=== PATIENT | female | born 1955 | race Caucasian/White ===

== ENCOUNTER 2016-10-13 06:49 | Day surgery (SDC) | payer BC ==
[2016-10-10 14:05] VITALS: BMI 28.8
[~2016-10-13 06:49] MED LIST: LACTATED RINGERS 1,000 ML IV SCH; LIDOCAINE 1% 20 ML VIAL (10MG/ML) FOR IV START INTRADERMA PRN
[2016-10-13] MEDS ORDERED: LACTATED RINGERS 1,000 ML IV ONE (06:50)
[2016-10-13 07:14] VITALS: TEMP 96.8
[2016-10-13] MEDS ORDERED: LIDOCAINE 1% INJ 10MG/ML (20 ML MDV) ONE (07:29)
[2016-10-13] MEDS ORDERED: PROPOFOL 10 MG/ML 20 ML VIAL IV ONE (07:29)
--- NOTE | 2016-10-13 07:46 | P.GSHP ---
History of Present Illness H&P Date: 10/13/16 Chief Complaint: Screening colonoscopy This is a 61-year-old female who presents today for screening colonoscopy. Patient's last colonoscopy was 10 years ago. She denies a any significant GI complaints. - Constitutional Constitutional: Reports as per HPI Past Medical History Past Medical History: Hypertension, Thyroid Disorder Additional Past Medical History / Comment(s): states "heart rate speeds up at times",IBS History of Any Multi-Drug Resistant Organisms: None Reported Past Surgical History: Cholecystectomy, Hysterectomy Past Anesthesia/Blood Transfusion Reactions: Postoperative Nausea & Vomiting ( PONV) Additional Past Anesthesia/Blood Transfusion Reaction / Comment(s): has hard time waking up with anesthesia. No hx blood transfusion Smoking Status: Former smoker Past Alcohol Use History: Occasional Additional Past Alcohol Use History / Comment(s): quit smoking approx 2006, smoked for 3 yrs approx <1ppd Past Drug Use History: None Reported - Past Family History Mother Family Medical History: Cancer Additional Family Medical History / Comment(s): lung CA Father Additional Family Medical History / Comment(s): alcoholism Medications and Allergies Home Medications Medication Instructions Recorded Confirmed Type Acetaminophen Tab [Tylenol Tab] 325 mg PO Q6H PRN 10/10/16 10/13/16 History Ergocalciferol [Vitamin D2] 50,000 unit PO Q7D 10/10/16 10/13/16 History Hyoscyamine Sulfate [Levsin] 0.125 mg PO QID PRN 10/10/16 10/13/16 History Levothyroxine Sodium [Synthroid] 50 mcg PO QAM 10/10/16 10/13/16 History Ramipril [Altace] 1.25 mg PO BID 10/10/16 10/13/16 History Venlafaxine HCl [Effexor XR] 150 mg PO HS 10/10/16 10/13/16 History Allergies Allergy/AdvReac Type Severity Reaction Status Date / Time latex Allergy Rash/Hives Verified 10/13/16 07:09 Sulfa (Sulfonamide AdvReac Nausea & Verified 10/13/16 07:09 Antibiotics) Vomiting Surgical - Exam Vital Signs Temp Pulse Resp BP Pulse Ox 96.8 F L 81 16 139/84 99 10/13/16 07:13 10/13/16 07:13 10/13/16 07:13 10/13/16 07:13 10/13/16 07:13 - General well developed, no distress - Eyes PERRL - ENT normal pinna - Neck no masses - Respiratory normal expansion - Abdomen Abdomen: soft, non tender Assessment and Plan Plan: We'll perform screening colonoscopy.
--- NOTE | 2016-10-13 08:04 | P.OP ---
Date of Procedure: 10/13/16 Preoperative Diagnosis: Screening colonoscopy Postoperative Diagnosis: Normal colonoscopy Procedure(s) Performed: Colonoscopy Anesthesia: MAC Surgeon: Tomer Dove Pathology: none sent Condition: stable Disposition: PACU Description of Procedure: PROCEDURE: The patient was placed on the endoscopy table in the lateral position. Digital rectal examination was performed which revealed no abnormalities. Flexible colonoscope was then placed in the patient's anus and passed throughout the entire colon. The ileocecal valve was visualized. The cecum, ascending, transverse, descending and sigmoid colon were normal. The rectum was normal as well. There were no masses, polyps or diverticula noted in the entire colon. SUMMARY OF FINDINGS: Normal colonoscopy.
[2016-10-13 08:11] VITALS: PULSE 70
[2016-10-13 08:21] VITALS: BP 121/72; RESP 18
== END 2016-10-13 08:52 | disposition home or self-care (01) ==
LOC: ORWHC2ENDO 06:49
PROVIDERS: ATTEND Surgery
DX: Z12.11 Encounter for screening for malignant neoplasm of colon (principal); I10 Essential (primary) hypertension; E07.9 Disorder of thyroid, unspecified; Z87.891 Personal history of nicotine dependence; F32.9 Major depressive disorder, single episode, unspecified; Z79.899 Other long term (current) drug therapy; Z88.2 Allergy status to sulfonamides
CPT/HCPCS: J2001; J2704; G0121

== ENCOUNTER 2016-10-27 09:38 | Observation (INO) | payer BC ==
[2016-10-27] MEDS ORDERED: SODIUM CHLORIDE 0.9% 1,000 ML IV STA (10:13)
--- NOTE | 2016-10-27 10:16 | ED ---
General Adult HPI <Fredy Mae - Last Filed: 10/27/16 11:59> - General Source: patient, RN notes reviewed Mode of arrival: ambulatory Limitations: no limitations <Shaka Cedeño - Last Filed: 10/27/16 12:25> - General Chief complaint: Abdominal Pain Stated complaint: ABDOMINAL PAIN Time Seen by Provider: 10/27/16 09:54 - History of Present Illness Initial comments: Patient is a 61-year-old female who presents emergency room today with a chief complaint of increased right lower quadrant pain that began this morning when she woke. Patient does admit that a dull pain with sharp pain at times. Currently rates it a 5/10. States she went to urgent care who evaluated her and sent here to the emergency room for rule out appendicitis. Patient denies any other complaints or associated symptoms. Patient denies any recent fever, chills, shortness of breath, chest pain, back pain, nausea or vomiting, numbness or tingling, dysuria or hematuria, constipation or diarrhea, headaches or visual changes, or any other complaints. (Shaka Cedeño) - Related Data Home Medications Medication Instructions Recorded Confirmed Acetaminophen Tab [Tylenol Tab] 325 mg PO Q6H PRN 10/10/16 10/27/16 Ergocalciferol [Vitamin D2] 50,000 unit PO MO 10/10/16 10/27/16 Hyoscyamine Sulfate [Levsin] 0.125 mg PO QID PRN 10/10/16 10/27/16 Ramipril [Altace] 1.25 mg PO BID 10/10/16 10/27/16 Venlafaxine HCl [Effexor XR] 150 mg PO HS 10/10/16 10/27/16 Levothyroxine Sodium [Synthroid] 50 mcg PO DAILY 10/27/16 10/27/16 Allergies Allergy/AdvReac Type Severity Reaction Status Date / Time latex Allergy Rash/Hives Verified 10/27/16 09:44 Sulfa (Sulfonamide AdvReac Nausea & Verified 10/27/16 09:44 Antibiotics) Vomiting Review of Systems ROS Other: All systems not noted in ROS Statement are negative. <Fredy Mae - Last Filed: 10/27/16 11:59> ROS Other: All systems not noted in ROS Statement are negative. <Shaka Cedeño - Last Filed: 10/27/16 12:25> ROS Statement: Those systems with pertinent positive or pertinent negative responses have been documented in the HPI. Past Medical History Past Medical History: Hypertension, Thyroid Disorder Additional Past Medical History / Comment(s): states "heart rate speeds up at times",IBS History of Any Multi-Drug Resistant Organisms: None Reported Past Surgical History: Cholecystectomy, Hysterectomy Past Anesthesia/Blood Transfusion Reactions: Postoperative Nausea & Vomiting ( PONV) Additional Past Anesthesia/Blood Transfusion Reaction / Comment(s): has hard time waking up with anesthesia. No hx blood transfusion Smoking Status: Former smoker Past Alcohol Use History: Occasional Additional Past Alcohol Use History / Comment(s): quit smoking approx 2006, smoked for 3 yrs approx <1ppd Past Drug Use History: None Reported - Past Family History Mother Family Medical History: Cancer Additional Family Medical History / Comment(s): lung CA Father Additional Family Medical History / Comment(s): alcoholism <Shaka Cedeño - Last Filed: 10/27/16 12:25> General Exam <Fredy Mae - Last Filed: 10/27/16 11:59> Limitations: no limitations <Shaka Cedeño - Last Filed: 10/27/16 12:25> - General Exam Comments Initial Comments: General: The patient is awake and alert, in no distress, and does not appear acutely ill. Eye: Pupils are equal, round and reactive to light, extra-ocular movements are intact. No nystagmus. There is normal conjunctiva bilaterally. No signs of icterus. Ears, nose, mouth and throat: There are moist mucous membranes and no oral lesions. Neck: The neck is supple, there is no tenderness or JVD. Cardiovascular: There is a regular rate and rhythm. No murmur, rub or gallop is appreciated. Respiratory: Lungs are clear to auscultation, respirations are non-labored, breath sounds are equal. No wheezes, stridor, rales, or rhonchi. Gastrointestinal: Normal. 7. Normal bowel sounds. Soft on palpation. Patient does have mild tenderness in the right lower quadrant. No rebound tenderness. No guarding. No CVA tenderness. Musculoskeletal: Normal ROM, no tenderness. Strength 5/5. Sensation intact. Pulses equal bilaterally 2+. Neurological: A&O x 3. CN II-XII intact, There are no obvious motor or sensory deficits. Coordination appears grossly intact. Speech is normal. Skin: Skin is warm and dry and no rashes or lesions are noted. Psychiatric: Cooperative, appropriate mood & affect, normal judgment. (Shaka Cedeño) Medical Decision Making - Lab Data Result diagrams: 10/27/16 09:55 10/27/16 09:55 <Fredy Mae - Last Filed: 10/27/16 11:59> - Lab Data Result diagrams: 10/27/16 09:55 10/27/16 09:55 <Shaka Cedeño - Last Filed: 10/27/16 12:25> - Medical Decision Making The patient was seen and examined. All diagnostics were reviewed. It appears that she likely does have an early appendicitis. The case will be discussed with surgery in the near future. The case also was discussed with the PA and I agree with the findings as documented. (Fredy Mae) - Lab Data Lab Results 10/27/16 10/27/16 10/27/16 Range/Units 09:55 09:55 09:55 WBC 8.1 (3.8-10.6) k/uL RBC 4.75 (3.80-5.40) m/uL Hgb 14.4 (11.4-16.0) gm/dL Hct 42.8 (34.0-46.0) % MCV 90.1 (80.0-100.0) fL MCH 30.3 (25.0-35.0) pg MCHC 33.7 (31.0-37.0) g/dL RDW 12.6 (11.5-15.5) % Plt Count 234 (150-450) k/uL Neutrophils % 71 % Lymphocytes % 21 % Monocytes % 4 % Eosinophils % 1 % Basophils % 1 % Neutrophils # 5.8 (1.3-7.7) k/uL Lymphocytes # 1.7 (1.0-4.8) k/uL Monocytes # 0.4 (0-1.0) k/uL Eosinophils # 0.1 (0-0.7) k/uL Basophils # 0.1 (0-0.2) k/uL Sodium 142 (137-145) mmol/L Potassium 4.1 (3.5-5.1) mmol/L Chloride 104 (98-107) mmol/L Carbon Dioxide 27 (22-30) mmol/L Anion Gap 11 mmol/L BUN 16 (7-17) mg/dL Creatinine 0.70 (0.52-1.04) mg/dL Est GFR (MDRD) Af Amer >60 (>60 ml/min/1.73 sqM) Est GFR (MDRD) Non-Af >60 (>60 ml/min/1.73 sqM) Glucose 96 (74-99) mg/dL Plasma Lactic Acid Dustin (0.7-2.0) mmol/L Calcium 9.4 (8.4-10.2) mg/dL Total Bilirubin 0.4 (0.2-1.3) mg/dL AST 20 (14-36) U/L ALT 30 (9-52) U/L Alkaline Phosphatase 102 (38-126) U/L Total Protein 7.2 (6.3-8.2) g/dL Albumin 4.5 (3.5-5.0) g/dL Amylase 36 (30-110) U/L Lipase 60 (23-300) U/L Urine Color Yellow Urine Appearance Cloudy H (Clear) Urine pH 5.5 (5.0-8.0) Ur Specific [place] 1.016 (1.001-1.035) Urine Protein Negative (Negative) Urine Glucose (UA) Negative (Negative) Urine Ketones Negative (Negative) Urine Blood Negative (Negative) Urine Nitrite Negative (Negative) Urine Bilirubin Negative (Negative) Urine Urobilinogen <2.0 (<2.0) mg/dL Ur Leukocyte Esterase Negative (Negative) Urine RBC 2 (0-5) /hpf Urine WBC 1 (0-5) /hpf Ur Squamous Epith Cells 12 H (0-4) /hpf Urine Bacteria Rare H (None) /hpf Urine Mucus Occasional H (None) /hpf 10/27/16 Range/Units 10:30 WBC (3.8-10.6) k/uL RBC (3.80-5.40) m/uL Hgb (11.4-16.0) gm/dL Hct (34.0-46.0) % MCV (80.0-100.0) fL MCH (25.0-35.0) pg MCHC (31.0-37.0) g/dL RDW (11.5-15.5) % Plt Count (150-450) k/uL Neutrophils % % Lymphocytes % % Monocytes % % Eosinophils % % Basophils % % Neutrophils # (1.3-7.7) k/uL Lymphocytes # (1.0-4.8) k/uL Monocytes # (0-1.0) k/uL Eosinophils # (0-0.7) k/uL Basophils # (0-0.2) k/uL Sodium (137-145) mmol/L Potassium (3.5-5.1) mmol/L Chloride (98-107) mmol/L Carbon Dioxide (22-30) mmol/L Anion Gap mmol/L BUN (7-17) mg/dL Creatinine (0.52-1.04) mg/dL Est GFR (MDRD) Af Amer (>60 ml/min/1.73 sqM) Est GFR (MDRD) Non-Af (>60 ml/min/1.73 sqM) Glucose (74-99) mg/dL Plasma Lactic Acid Dustin 0.7 (0.7-2.0) mmol/L Calcium (8.4-10.2) mg/dL Total Bilirubin (0.2-1.3) mg/dL AST (14-36) U/L ALT (9-52) U/L Alkaline Phosphatase (38-126) U/L Total Protein (6.3-8.2) g/dL Albumin (3.5-5.0) g/dL Amylase (30-110) U/L Lipase (23-300) U/L Urine Color Urine Appearance (Clear) Urine pH (5.0-8.0) Ur Specific [place] (1.001-1.035) Urine Protein (Negative) Urine Glucose (UA) (Negative) Urine Ketones (Negative) Urine Blood (Negative) Urine Nitrite (Negative) Urine Bilirubin (Negative) Urine Urobilinogen (<2.0) mg/dL Ur Leukocyte Esterase (Negative) Urine RBC (0-5) /hpf Urine WBC (0-5) /hpf Ur Squamous Epith Cells (0-4) /hpf Urine Bacteria (None) /hpf Urine Mucus (None) /hpf Disposition <Fredy Mae - Last Filed: 10/27/16 11:59> Time of Disposition: 12:05 <Shaka Cedeño - Last Filed: 10/27/16 12:25> Clinical Impression: Acute appendicitis Disposition: ADMITTED IP TO THIS HOSP Condition: Good
[2016-10-27 10:37] LABS: Appearance,Urine Cloudy (Clear); Bacteria,Urine Rare /hpf; Bilirubin,Urine Negative (Negative); Glucose,Urine (UA) Negative (Negative); Ketones,Urine Negative (Negative); Leukocyte Esterase,Urine Negative (Negative); Mucus,Urine Occasional /hpf; Nitrite,Urine Negative (Negative); PH, Urine 5.5 (5.0-8.0); Particle Count 6058; Protein,Urine Negative (Negative); RBC,Urine 2 /hpf (0-5); Specific Gravity,Urine 1.016 (1.001-1.035); Squamous Epithelial Cell,Urine 12 /hpf (0-4); UA Billing (MACRO vs. MICRO) MICRO; Urobilinogen,Urine <2.0 mg/dL (<2.0); WBC,Urine 1 /hpf (0-5)
[2016-10-27 10:40] LABS: Basophils # (A) 0.1 k/uL (0-0.2); Basophils % (A) 1 %; CH 29.2; CHCM 32.5; Eosinophils # (A) 0.1 k/uL (0-0.7); Eosinophils % (A) 1 %; HCT 42.8 % (34.0-46.0); HDW 2.23; HGB 14.4 gm/dL (11.4-16.0); Luc # (Auto) 0.11; Luc % (Auto) 1; Lymphocytes # (A) 1.7 k/uL (1.0-4.8); Lymphocytes % (A) 21 %; MCH 30.3 pg (25.0-35.0); MCHC 33.7 g/dL (31.0-37.0); MCV 90.1 fL (80.0-100.0); Monocytes # (A) 0.4 k/uL (0-1.0); Monocytes % (A) 4 %; Neutrophils # (A) 5.8 k/uL (1.3-7.7); Neutrophils % (A) 71 %; RBC 4.75 m/uL (3.80-5.40); RDW 12.6 % (11.5-15.5); WBC 8.1 k/uL (3.8-10.6); WBC (Perox) 8.14
[2016-10-27 10:45] LABS: ALT 30 U/L (9-52); AST 20 U/L (14-36); Alkaline Phosphatase 102 U/L (38-126); Amylase 36 U/L (30-110); Anion Gap 11 mmol/L; Blood Urea Nitrogen 16 mg/dL (7-17); Calcium 9.4 mg/dL (8.4-10.2); Carbon Dioxide 27 mmol/L (22-30); Chloride 104 mmol/L (98-107); Glucose 96 mg/dL (74-99); Non-African American GFR(MDRD) >60 (>60 ml/min/1.73 sqM); Potassium 4.1 mmol/L (3.5-5.1); Sodium 142 mmol/L (137-145); Total Bilirubin 0.4 mg/dL (0.2-1.3); Total Protein 7.2 g/dL (6.3-8.2)
[2016-10-27] MEDS ORDERED: RX INFO: IV CONTRAST WAS GIVEN 1 EACH MISC MISCELLANE PRN (10:56)
--- NOTE | 2016-10-27 11:31 | CT ---
EXAMINATION TYPE: CT abdomen pelvis w con DATE OF EXAM: 10/27/2016 11:20 AM REFERENCE: NONE HISTORY: Pain HISTORY: Right Lower Quadrant pain today REFERENCE: NONE CT DLP: 1096.5 mGy Automated exposure control for dose reduction was used. TECHNIQUE: Helical acquisition through the abdomen and pelvis was obtained following the oral ingesti on of without Oral Contrast and following intravenous administration of 100 mL of Omnipaque 300. The data was reformatted in axial, coronal and sagittal projections. FINDINGS: There is dependent atelectasis within the lungs. There is no pleural or pericardial fluid. The heart is not enlarged. There is a small hiatal hernia. Within the abdomen, the gallbladder is been removed. Liver and spleen are normal. Both adrenal glands are normal. There is a 4.6 mm nonobstructing calculus in the posterior lower pole calyx of the left kidney. Kidne ys are otherwise normal. The pancreas is unremarkable. There is no significant retroperitoneal, iliac or inguinal adenopathy. Uterus and ovaries are not visualized. There are tubal ligation clips within the pelvis. The bladder is unremarkable. There are scattered diverticula throughout the left side of the colon. There is no radiographic evide nce of diverticulitis. There is a retrocecal appendix measuring 9 mm with some inflammatory change adjacent to it. Small bowel loops appear normal. There is a small umbilical hernia containing fat only with a 10.2 mm mouth. There is no free fluid and no free air identified. There is minimal hypertrophic spondylosis within the lower dorsal spine. There is facet arthropathy i n the lower lumbar spine. No bony destructive lesion is seen. IMPRESSION: 1. SIGNS OF EARLY APPENDICITIS. 2. NONOBSTRUCTING LEFT-SIDED NEPHROLITHIASIS. 3. SMALL HIATAL HERNIA. 4. MINIMAL, UNCOMPLICATED DIVERTICULOSIS OF THE LEFT SIDE OF THE COLON. 5. SMALL UMBILICAL HERNIA CONTAINING FAT ONLY. 6. DEGENERATIVE CHANGES WITHIN THE SPINE.
[2016-10-27] MEDS ORDERED: AMPICILLIN-SULBACTAM 3 GM in SODIUM CHLORIDE 0.9% 100 ML IVPB STA (11:58)
[2016-10-27] MEDS ORDERED: NALOXONE 0.4 MG/ML 1 ML VIAL IV PRN (12:25)
[2016-10-27] MEDS ORDERED: SODIUM CHLORIDE 0.9% 1,000 ML IV ONE (12:25)
[2016-10-27] MEDS ORDERED: ONDANSETRON 4 MG/2 ML VIAL IVP PRN ×2 (12:25→13:53)
[2016-10-27] MEDS ORDERED: IV FLUID CONTINUATION 1,000 ML IV ONE (12:59)
[2016-10-27] MEDS ORDERED: DEXAMETHASONE SOD PHOS (MDV) 100 MG/10 ML VIAL IV ONE (13:04)
[2016-10-27] MEDS ORDERED: SCOPOLAMINE 1.5MG/72HR PATCH TRANSDERM ONE (13:08)
[2016-10-27] MEDS ORDERED: HEPARIN SODIUM,PORCINE 5,000 UNIT/ML 1 ML VIAL SQ ONE (13:12)
--- NOTE | 2016-10-27 13:14 | P.GSHP ---
History of Present Illness H&P Date: 10/27/16 Chief Complaint: Appendicitis This a 7-year-old female who woke up with complaints of right lower quadrant pain today patient was evaluated in the emergency room found have evidence of acute appendicitis on CAT scan. Past Medical History Past Medical History: Hypertension, Thyroid Disorder Additional Past Medical History / Comment(s): states "heart rate speeds up at times",IBS, hypothyroid. History of Any Multi-Drug Resistant Organisms: None Reported Past Surgical History: Cholecystectomy, Hysterectomy Additional Past Surgical History / Comment(s): 10/13/16 colonoscopy-normal, R wrist cystectomy. Past Anesthesia/Blood Transfusion Reactions: Postoperative Nausea & Vomiting ( PONV) Additional Past Anesthesia/Blood Transfusion Reaction / Comment(s): has hard time waking up with anesthesia. No hx blood transfusion Past Psychological History: Depression Additional Psychological History / Comment(s): Pt resides with her spouse. She is independent. Smoking Status: Former smoker Past Alcohol Use History: Occasional Additional Past Alcohol Use History / Comment(s): quit smoking approx 2006, smoked for 3 yrs approx <1ppd Past Drug Use History: None Reported - Past Family History Mother Family Medical History: Cancer Additional Family Medical History / Comment(s): lung CA. Mother was a smoker. Father Additional Family Medical History / Comment(s): alcoholism Medications and Allergies Home Medications Medication Instructions Recorded Confirmed Type Acetaminophen Tab [Tylenol Tab] 325 mg PO Q6H PRN 10/10/16 10/27/16 History Ergocalciferol [Vitamin D2] 50,000 unit PO MO 10/10/16 10/27/16 History Hyoscyamine Sulfate [Levsin] 0.125 mg PO QID PRN 10/10/16 10/27/16 History Ramipril [Altace] 1.25 mg PO BID 10/10/16 10/27/16 History Venlafaxine HCl [Effexor XR] 150 mg PO HS 10/10/16 10/27/16 History Levothyroxine Sodium [Synthroid] 50 mcg PO DAILY 10/27/16 10/27/16 History Allergies Allergy/AdvReac Type Severity Reaction Status Date / Time latex Allergy Rash/Hives Verified 10/27/16 09:44 Sulfa (Sulfonamide AdvReac Nausea & Verified 10/27/16 09:44 Antibiotics) Vomiting Surgical - Exam Vital Signs Temp Pulse Resp BP Pulse Ox 97.8 F 85 20 125/78 98 10/27/16 09:42 10/27/16 09:42 10/27/16 09:42 10/27/16 09:42 10/27/16 09:42 - General well developed, no distress - Eyes PERRL - ENT normal pinna - Neck no masses - Respiratory normal expansion - Cardiovascular Rhythm: regular - Abdomen Abdomen soft. There is mild right lower quadrant pain. There is no rebound or guarding. Results - Labs 10/27/16 09:55 10/27/16 09:55 Assessment and Plan Plan: Acute appendicitis. She'll undergo laparoscopic appendectomy today.
[2016-10-27] MEDS ORDERED: KETOROLAC 30 MG/ML 1 ML VIAL ONE (13:20)
[2016-10-27] MEDS ORDERED: PROPOFOL 10 MG/ML 20 ML VIAL IV ONE (13:20)
[2016-10-27] MEDS ORDERED: ACETAMINOPHEN IV (For NPO) 1,000 MG/100 ML VIAL ONE (13:20)
[2016-10-27] MEDS ORDERED: LIDOCAINE 1% INJ 10MG/ML (20 ML MDV) ONE (13:20)
[2016-10-27] MEDS ORDERED: GLYCOPYRROLATE 0.2 MG/ML 2 ML VIAL ONE (13:20)
[2016-10-27] MEDS ORDERED: NEOSTIGMINE 1 MG/ML 10 ML VIAL ONE (13:20)
[2016-10-27] MEDS ORDERED: fentaNYL (PF) 50 MCG/ML 2 ML AMP ONE (13:20)
[2016-10-27] MEDS ORDERED: SUCCINYLCHOLINE CHLORIDE 100 MG/5 ML SYR IV ONE (13:20)
[2016-10-27] MEDS ORDERED: MIDAZOLAM 2 MG/2 ML VIAL ONE (13:20)
[2016-10-27] MEDS ORDERED: VECURONIUM 10 MG VIAL IV ONE (13:20)
[2016-10-27] MEDS ORDERED: BUPIVACAIN-EPI 0.25%-1:200,000 30 ML VIAL SQ ONE ×2 (13:34)
[2016-10-27] MEDS ORDERED: METOCLOPRAMIDE 5 MG/ML 2 ML VIAL IVP PRN (13:53)
--- NOTE | 2016-10-27 13:53 | P.OP ---
Date of Procedure: 10/27/16 Preoperative Diagnosis: Acute appendicitis Postoperative Diagnosis: Acute appendicitis Procedure(s) Performed: Laparoscopic appendectomy Anesthesia: PABLO HERRERA Surgeon: Tomer Dove Estimated Blood Loss (ml): 5 Pathology: other (Appendix) Condition: stable Disposition: PACU Description of Procedure: The patient's placed on the operating table in the supine position. The patient received general anesthesia. The abdomen was prepped and draped in the usual sterile fashion. The skin was anesthetized 1% local Xylocaine at the trocar sites. Using an 11 blade the skin was incised at the umbilicus. The umbilicus was grasped with a Leticia clamp and then a Veress needle was placed into the peritoneal cavity. Position of the Veress needle was confirmed with positive drop test. After adequate insufflation a 5 mm trocar was placed into the peritoneal cavity. The abdomen was further insufflated. And then the laparoscope was placed in the peritoneal cavity. Next a 5 mm trocar was placed in the midline suprapubic position. And then a 10 mm trocar was placed in the midline epigastric position. The patient was rotated with the right side up and in Trendelenburg. The appendix was visualized. The appendix appeared to be inflamed. The appendix was grasped and then using the Harmonic scissors the mesoappendix was divided. A PDS Endoloop was then placed around the base of the appendix. And then the appendix was divided using Harmonic scissors. The appendix was placed into an Endo Catch and brought out through the 10 mm trocar site. The abdomen was irrigated. There is no bleeding seen. The trochars withdrawn. The skin was closed interrupted 3-0 Monocryl suture. Dermabond dressing was applied. Patient was sent to recovery room in stable condition.
[2016-10-27] MEDS: D5-0.45% NACL WITH KCL 20MEQ/L 1,000 ML IV SCH ×2 (15:07→22:44)
[2016-10-27] MEDS: KETOROLAC 30 MG/ML 1 ML VIAL IVP PRN ×2 (15:12→21:09)
[2016-10-27 15:44] LABS: Basophils % (A) 0 %; CH 29.2; CHCM 31.5; Eosinophils # (A) 0.1 k/uL (0-0.7); Eosinophils % (A) 1 %; HCT 41.3 % (34.0-46.0); HDW 2.13; HGB 13.2 gm/dL (11.4-16.0); Luc # (Auto) 0.05; Luc % (Auto) 1; Lymphocytes % (A) 10 %; MCH 29.9 pg (25.0-35.0); MCHC 32.1 g/dL (31.0-37.0); MCV 93.2 fL (80.0-100.0); Mean Platelet Volume 7.4; Monocytes # (A) 0.2 k/uL (0-1.0); Monocytes % (A) 2 %; Neutrophils # (A) 8.8 k/uL (1.3-7.7); Neutrophils % (A) 87 %; RBC 4.43 m/uL (3.80-5.40); RDW 12.8 % (11.5-15.5); WBC 10.1 k/uL (3.8-10.6); WBC (Perox) 11.04
[2016-10-27 15:52] LABS: Anion Gap 15 mmol/L; Blood Urea Nitrogen 13 mg/dL (7-17); Calcium 8.7 mg/dL (8.4-10.2); Carbon Dioxide 20 mmol/L (22-30); Chloride 108 mmol/L (98-107); Glucose 118 mg/dL (74-99); Non-African American GFR(MDRD) >60 (>60 ml/min/1.73 sqM); Potassium 4.2 mmol/L (3.5-5.1); Sodium 143 mmol/L (137-145)
[2016-10-27] MEDS: HYDROmorphone 1 MG/ML 1 ML SYRINGE IV PRN (16:20)
[2016-10-27] MEDS: HEPARIN SODIUM,PORCINE 5,000 UNIT/ML 1 ML VIAL SQ SCH (16:22)
[2016-10-27 16:39] VITALS: BMI 29.4
[2016-10-28] MEDS: HEPARIN SODIUM,PORCINE 5,000 UNIT/ML 1 ML VIAL SQ SCH ×2 (00:07→08:05)
[2016-10-28] MEDS: HYDROmorphone 1 MG/ML 1 ML SYRINGE IV PRN (00:15)
[2016-10-28] MEDS: D5-0.45% NACL WITH KCL 20MEQ/L 1,000 ML IV SCH (05:07)
[2016-10-28] MEDS: KETOROLAC 30 MG/ML 1 ML VIAL IVP PRN ×2 (05:07→12:02)
[2016-10-28] MEDS ORDERED: LEVOTHYROXINE 50 MCG TAB PO SCH (06:30)
[2016-10-28 07:49] LABS: Basophils % (A) 0 %; CH 29.3; CHCM 31.8; Eosinophils % (A) 0 %; HCT 38.1 % (34.0-46.0); HDW 2.27; HGB 12.7 gm/dL (11.4-16.0); Luc # (Auto) 0.06; Luc % (Auto) 1; Lymphocytes # (A) 0.8 k/uL (1.0-4.8); Lymphocytes % (A) 6 %; MCH 30.7 pg (25.0-35.0); MCHC 33.3 g/dL (31.0-37.0); MCV 92.3 fL (80.0-100.0); Mean Platelet Volume 7.2; Monocytes # (A) 0.4 k/uL (0-1.0); Monocytes % (A) 3 %; Neutrophils # (A) 11.3 k/uL (1.3-7.7); Neutrophils % (A) 90 %; RBC 4.13 m/uL (3.80-5.40); RDW 12.7 % (11.5-15.5); WBC 12.6 k/uL (3.8-10.6); WBC (Perox) 13.06
[2016-10-28 07:54] LABS: ALT 27 U/L (9-52); AST 19 U/L (14-36); Alkaline Phosphatase 83 U/L (38-126); Anion Gap 10 mmol/L; Blood Urea Nitrogen 8 mg/dL (7-17); Calcium 8.9 mg/dL (8.4-10.2); Carbon Dioxide 22 mmol/L (22-30); Chloride 107 mmol/L (98-107); Glucose 163 mg/dL (74-99); Non-African American GFR(MDRD) >60 (>60 ml/min/1.73 sqM); Potassium 4.7 mmol/L (3.5-5.1); Sodium 139 mmol/L (137-145); Total Bilirubin 0.4 mg/dL (0.2-1.3); Total Protein 6.4 g/dL (6.3-8.2)
--- NOTE | 2016-10-28 08:58 | CONS ---
DATE OF CONSULTATION: I am covering for Dr. Cantrell. REASON FOR CONSULTATION: Advice regarding hypertension and multiple other medical problems requested by Dr. Dove. HISTORY OF PRESENT ILLNESS: This 61-year-old woman with a past medical history of hypertension, hypothyroidism, history of IBS, history of cholecystectomy, hysterectomy, history of depression, being followed by Dr. Cantrell in the outpatient setting was admitted with abdominal pain. The patient underwent laparoscopic appendectomy for acute appendicitis and the patient has been closely monitored. There is no history of fever, headache, loss of consciousness, seizures. PAST MEDICAL HISTORY: History of hypertension, hypothyroidism, history of IBS, history of cholecystectomy, hysterectomy, appendectomy. Medications prior to admission include: 1. Effexor-XR 150 mg q.h.s. 2. Altace 1.25 mg b.i.d. 3. Synthroid 50 mg daily. 4. Levsin 0.12 mg p.o. q.i.d. p.r.n. 5. Vitamin D2 50,000 Monday. 6. Tylenol 325 mg q.6 p.r.n. ALLERGIES: LATEX AND SULFA. FAMILY HISTORY: History of lung cancer. SOCIAL HISTORY: Previous history of smoking. REVIEW OF SYSTEMS: ENT: No diminished hearing or diminished vision. CARDIOVASCULAR: No angina. RESPIRATORY: As mentioned earlier. GI: As mentioned earlier. : No dysuria. NERVOUS SYSTEM: No numbness or weakness. ALLERGY/IMMUNOLOGY: No asthma or hayfever. MUSCULOSKELETAL: As mentioned earlier. HEMATOLOGY: No history of anemia. ENDOCRINE: As mentioned earlier. CONSTITUTIONAL: As mentioned earlier. DERMATOLOGY: Negative. RHEUMATOLOGY: Negative. PSYCHIATRY: As mentioned earlier. PHYSICAL EXAMINATION: Alert and oriented x3. Pulse 75, blood pressure 124/60, respiration 16, temperature 97 degrees, pulse ox 97% on room air. HEENT: Conjunctivae normal. NECK: No jugular venous distention. CARDIOVASCULAR: S1 and S2, muffled. RESPIRATORY: Breath sounds diminished at the bases. No rhonchi, no crackles. ABDOMEN: Soft, status post surgery. LEGS: No edema, no swelling. NERVOUS SYSTEM: No focal deficits. LABS: CBC within normal limits. Otherwise, CO2 is 20, glucose 118. UA noted. ASSESSMENT: 1. Acute appendicitis, status post laparoscopic appendectomy. 2. Increased random blood sugar. 3. Hypertension. 4. Hypothyroidism. 5. History of irritable bowel syndrome. 6. History of cholecystectomy. 7. History of hysterectomy. 8. History of depression, not otherwise specified. RECOMMENDATIONS AND DISCUSSION: In this 64-year-old woman who presented with multiple complex medical issues issue, will monitor the patient closely. Continue the current medications. Continue symptomatic treatment. We will initiate the home medications. DVT prophylaxis. Otherwise incentive spirometry. Will follow the patient closely with you and patient may be asked to follow up with Dr. Madi Cantrell closely after discharge. Thank you, Dr. Dove for letting us participate in the care of this patient. NANI
[2016-10-28] MEDS ORDERED: LISINOPRIL 5 MG TAB PO SCH (09:00)
[2016-10-28 09:28] VITALS: BP 112/58; PULSE 66; RESP 14; TEMP 97.5
--- NOTE | 2016-10-28 16:24 | P.DS ---
Providers Date of admission: 10/27/16 12:21 Expected date of discharge: 10/28/16 Attending physician: Tomer Dove Consults: 10/27/16 18:14 Consult Physician Routine Consulting Provider: Pj Armijo Consult Reason/Comments: Medical Management Do you want consulting provider notified?: Yes Primary care physician: Madi Cantrell Hospital Course: This a 7-year-old female who underwent laparoscopic appendectomy yesterday for acute appendicitis. Patient did well postop. She is discharged home on 47. Please see hospital chart for details. Procedures: Laparoscopic appendectomy Patient Condition at Discharge: Good Plan - Discharge Summary New Discharge Prescriptions: HYDROcodone/APAP 7.5-325MG [[place] 7.5] 1 each PO Q4H PRN #60 tab PRN Reason: Pain Discharge Medication List Acetaminophen Tab [Tylenol Tab] 325 mg PO Q6H PRN 10/10/16 [History] Ergocalciferol [Vitamin D2] 50,000 unit PO MO 10/10/16 [History] Hyoscyamine Sulfate [Levsin] 0.125 mg PO QID PRN 10/10/16 [History] Ramipril [Altace] 1.25 mg PO BID 10/10/16 [History] Venlafaxine HCl [Effexor XR] 150 mg PO HS 10/10/16 [History] Levothyroxine Sodium [Synthroid] 50 mcg PO DAILY 10/27/16 [History] HYDROcodone/APAP 7.5-325MG [[place] 7.5] 1 each PO Q4H PRN #60 tab 10/28/16 [Rx] Follow up Appointment(s)/Referral(s): Madi Cantrell DO [Primary Care Provider] - 1-2 days (office closed) Tomer Dove MD [STAFF PHYSICIAN] - 11/03/16 2:00 pm Activity/Diet/Wound Care/Special Instructions: MAY SHOWER DAILY. DO NOT SCRUB INCISIONS. NO SOAKING IN TUBS, NO POOLS. NOTIFY DR DOVE WITH SIGNS OR SYMPTOMS OF INFECTION SUCH INCREASED REDNESS, SWELLING, PAIN, DISCHARGE FROM PUNCTURE SITES, FEVER OVER 101. ADVANCE TOLERATED TO REGULAR DIET. NO LIFTING,PUSHING OR PULLING ANYTHING GREATER THAN 5 LBS.
--- NOTE | 2016-10-28 17:14 | PN ---
I am covering for Dr. Cantrell. DATE OF SERVICE: 10/28/2016 This 61-year-old woman who was admitted after laparoscopic appendectomy is improving significantly. No chest pain. No palpitation. No fever. No shortness of breath. On exam, alert and oriented x3. Pulse 66, blood pressure 112/58, respiration 14, temperature 97.4, pulse ox 94% on room air. HEENT: Conjunctivae normal. NECK: No jugular venous distention. CARDIOVASCULAR SYSTEM: S1, S2 muffled. RESPIRATORY SYSTEM: Breath sounds diminished at the bases. No rhonchi. No crackles. ABDOMEN: Soft. Status post surgery. LEGS: No edema. No swelling. NERVOUS SYSTEM: No focal deficit. LABS: WBC 12.6, hemoglobin 12.7. Glucose 163. ASSESSMENT: 1. Acute appendicitis, status post laparoscopic appendectomy. 2. Increased random blood sugar. 3. Hypertension. 4. Hypothyroidism. 5. History of irritable bowel syndrome. 6. Cholecystectomy. 7. Hysterectomy. 8. History of depression not otherwise specified. 9. FULL CODE. RECOMMENDATIONS AND DISCUSSION: In this 61-year-old woman who presented with multiple medical issues, we will monitor the patient closely, continue the current medications, continue with symptomatic treatment. Incentive spirometry. DVT prophylaxis. Will follow the patient closely with you. Patient may be asked to follow up with Dr. Cantrell after discharge.
[2016-10-28] MEDS ORDERED: VENLAFAXINE HCL ER 150 MG CAP PO SCH (21:00)
== END 2016-10-28 16:59 | disposition home or self-care (01) ==
LOC: EC 09:38 → 3SUR 12:21
PROVIDERS: ADMIT Surgery; ATTEND Surgery
DX: K35.80 Unspecified acute appendicitis (principal); Z79.899 Other long term (current) drug therapy; Z88.1 Allergy status to other antibiotic agents; Z88.2 Allergy status to sulfonamides; E03.9 Hypothyroidism, unspecified; F32.9 Major depressive disorder, single episode, unspecified; I10 Essential (primary) hypertension; K58.9 Irritable bowel syndrome, unspecified; Z87.891 Personal history of nicotine dependence; Z91.048 Other nonmedicinal substance allergy status; Z90.710 Acquired absence of both cervix and uterus
CPT/HCPCS: 44970; 96361 ×2; 96365 ×2; 99285 ×2; 96376 ×2; 96366; 96367; 96372 ×2; 96375; 36415; 88304; 80053 ×2; 80048; 82150; 83605; 83690; 85025 ×2; 81001; 74177; G0378 ×2; J2250; J1644 ×2; J2710; J2405; J2001; J3010; J1885 ×2; J1170 ×2; Q9967; J0295; J1100; J0131; J0330; J2704

== ENCOUNTER → 2016-11-28 | Outpatient (CLI) | payer BC ==
--- NOTE | 2016-11-28 08:53 | MM ---
Reason for exam: follow-up at short interval from prior study. Last mammogram was performed 6 months ago. History: Patient is postmenopausal. Family history of breast cancer in sister at age 66 and breast cancer in aunt at age 60. Took hormonal contraceptives for 10 years beginning at age 26. Indicated problem(s): palpable abnormality in the left breast. Physical Findings: Nurse did not find any significant physical abnormalities on exam. MG Diagnostic Mammo LT w CAD CC and MLO view(s) were taken of the left breast. Prior study comparison: May 30, 2016, left breast MG work up mamm w CAD LT. May 25, 2016, bilateral MG screening mammo w CAD. The breast tissue is heterogeneously dense. This may lower the sensitivity of mammography. Nodule has resolved. These results were verbally communicated with the patient and result sheet given to the patient on 11/28/16. ASSESSMENT: Negative, BI-RAD 1 RECOMMENDATION: Return to routine screening mammogram schedule for both breasts. Back on schedule.
== END | disposition home or self-care (01) ==
LOC: RADMAMWWP 06:52
PROVIDERS: ATTEND Family Medicine
DX: N63 Unspecified lump in breast (principal)

== ENCOUNTER → 2017-12-21 | Outpatient (CLI) | payer BC ==
--- NOTE | 2017-12-21 13:41 | MM ---
Reason for exam: screening (asymptomatic). Last mammogram was performed 1 year and 1 month ago. History: Patient is postmenopausal. Family history of breast cancer in sister at age 66 and breast cancer in aunt at age 60. Took hormonal contraceptives for 10 years beginning at age 26. Physical Findings: A clinical breast exam by your physician is recommended on an annual basis and results should be correlated with mammographic findings. MG Screening Mammo w CAD Bilateral CC and MLO view(s) were taken. Prior study comparison: November 28, 2016, left breast MG diagnostic mammo LT w CAD. May 30, 2016, left breast MG work up mamm w CAD LT. The breast tissue is heterogeneously dense. This may lower the sensitivity of mammography. There is a 7mm mass upper inner quadrant right breast at anterior depth. No suspicious abnormality in the left breast. ASSESSMENT: Incomplete: need additional imaging evaluation, BI-RAD 0 RECOMMENDATION: Special view mammogram of the right breast. If lesion persists on supplemental views, image directed ultrasound is recommended. [facility] will attempt to contact patient to return for supplemental views and ultrasound if indicated.
== END | disposition home or self-care (01) ==
LOC: RADMAMWWP 06:54
PROVIDERS: ATTEND Family Medicine
DX: Z12.31 Encounter for screening mammogram for malignant neoplasm of breast (principal)
CPT/HCPCS: 77067

== ENCOUNTER → 2017-12-27 | Outpatient (CLI) | payer BC ==
--- NOTE | 2017-12-27 09:01 | MM ---
Reason for exam: additional evaluation requested from abnormal screening. Last mammogram was performed less than 1 month ago. History: Patient is postmenopausal. Family history of breast cancer in sister at age 66 and breast cancer in aunt at age 60. Took hormonal contraceptives for 10 years beginning at age 26. Took estrogen beginning at age 41. Took progesterone beginning at age 41. Physical Findings: Nurse did not find any significant physical abnormalities on exam. MG Work Up Mamm w CAD RT Spot compression CC, spot compression MLO, and ML view(s) were taken of the right breast. Prior study comparison: December 21, 2017, bilateral MG screening mammo w CAD. November 28, 2016, left breast MG diagnostic mammo LT w CAD. Nodularity persists. Ultrasound at 12 o'clock recommended. These results were verbally communicated with the patient and result sheet given to the patient on 12/27/17. ASSESSMENT: Incomplete: need additional imaging evaluation, BI-RAD 0 RECOMMENDATION: Ultrasound of the right breast.
--- NOTE | 2017-12-27 09:02 | USB ---
Reason for exam: additional evaluation requested from abnormal screening. History: Patient is postmenopausal. Family history of breast cancer in sister at age 66 and breast cancer in aunt at age 60. Took hormonal contraceptives for 10 years beginning at age 26. Took estrogen beginning at age 41. Took progesterone beginning at age 41. US Breast Workup Limited RT Right limited breast ultrasound including focal area of concern, retroareolar and axilla demonstrates a 0.9 x 0.8 x 0.6cm cystic lesion at the posterior nipple. These results were verbally communicated with the patient and result sheet given to the patient on 12/27/17. ASSESSMENT: Benign, BI-RAD 2 RECOMMENDATION: Return to routine screening mammogram schedule for both breasts.
== END | disposition home or self-care (01) ==
LOC: RADMAMWWP 07:01
PROVIDERS: ATTEND Family Medicine
DX: R92.8 Other abnormal and inconclusive findings on diagnostic imaging of breast (principal)
CPT/HCPCS: 77065

== ENCOUNTER 2018-02-06 11:21 | Day surgery (SDC) | payer BC ==
[~2018-02-06 11:21] MED LIST changes: +DEXAMETHASONE SOD PHOSPHATE 10 MG/ML 1 ML VIAL IV ONE; +HEPARIN SODIUM,PORCINE 5,000 UNIT/ML 1 ML VIAL SQ ONE; -LACTATED RINGERS 1,000 ML IV SCH; +MIDAZOLAM 2 MG/2 ML VIAL IV PRN; +ONDANSETRON 4 MG/2 ML VIAL IVP ONE; +Pre Op ABX Message 1 EACH MISC MISCELLANE ONE; +fentaNYL (PF) 50 MCG/ML 2 ML AMP IV PRN
[2018-02-06 11:39] VITALS: RESP 18; TEMP 98.3
[2018-02-06] MEDS: LACTATED RINGERS 1,000 ML IV SCH ×2 (11:55→13:57)
[2018-02-06] MEDS ORDERED: HEPARIN SODIUM,PORCINE 5,000 UNIT/ML 1 ML VIAL SQ ONE (13:36)
[2018-02-06] MEDS ORDERED: PROPOFOL 10 MG/ML 20 ML VIAL IV ONE (13:59)
[2018-02-06] MEDS ORDERED: fentaNYL (PF) 50 MCG/ML 2 ML AMP ONE (13:59)
[2018-02-06] MEDS ORDERED: MIDAZOLAM 2 MG/2 ML VIAL ONE (13:59)
[2018-02-06] MEDS ORDERED: LIDOCAINE 1% INJ 10MG/ML (20 ML MDV) SQ ONE ×2 (14:11)
--- NOTE | 2018-02-06 14:30 | P.OP ---
Date of Procedure: 02/06/18 Preoperative Diagnosis: Subcutaneous nodule right breast inferior medial aspect Postoperative Diagnosis: same Procedure(s) Performed: Excision of subcutaneous nodule right breast Anesthesia: MAC Surgeon: Khloe Gooden Estimated Blood Loss (ml): 3 IV fluids (ml): 450 Pathology: other (subcutanous tissue) Condition: stable Disposition: PACU Indications for Procedure: New subcutaneous nodule right breast inferior medial aspect rule out sebaceous cyst Operative Findings: Nodular subcutaneous tissue Description of Procedure: Patient was taken to the operating room and following sedation the right breast was prepped and draped in a sterile fashion. One percent lidocaine was used to anesthetize the area of concern. Incision was made circumferentially around an area of increased nodularity. This was felt to most likely represent a sebaceous cyst. However upon excision of the area no dermal component was identified. There was nodularity of the tissue which may be a small lipoma this was carried down to the chest wall. Excisional biopsy was performed. After assured that hemostasis was attained the deep tissues were closed with a 3 -0 Vicryl suture. The skin was closed with a 4-0 Monocryl. The size of the specimen was approximately 4 cm x 3 cm. All instrument and sponge counts were correct at the end of the case. The patient tolerated the procedure in stable condition.
--- NOTE | 2018-02-06 14:31 | P.DS ---
Providers Attending physician: Khloe Gooden Primary care physician: Madi Cantrell Plan - Discharge Summary New Discharge Prescriptions: No Action Venlafaxine HCl [Effexor XR] 150 mg PO HS Ergocalciferol [Vitamin D2] 50,000 unit PO MO Hyoscyamine Sulfate [Levsin] 0.125 mg PO QID PRN PRN Reason: cramping Ramipril [Altace] 10 mg PO BID Acetaminophen Tab [Tylenol Tab] 325 mg PO Q6H PRN PRN Reason: Pain Levothyroxine Sodium [Synthroid] 50 mcg PO QAM Melatonin 5 - 10 mg PO HS PRN PRN Reason: Insomnia Discharge Medication List Acetaminophen Tab [Tylenol Tab] 325 mg PO Q6H PRN 10/10/16 [History] Ergocalciferol [Vitamin D2] 50,000 unit PO MO 10/10/16 [History] Hyoscyamine Sulfate [Levsin] 0.125 mg PO QID PRN 10/10/16 [History] Ramipril [Altace] 10 mg PO BID 10/10/16 [History] Venlafaxine HCl [Effexor XR] 150 mg PO HS 10/10/16 [History] Levothyroxine Sodium [Synthroid] 50 mcg PO QAM 10/27/16 [History] Melatonin 5 - 10 mg PO HS PRN 02/02/18 [History] Follow up Appointment(s)/Referral(s): Khloe Gooden MD [STAFF PHYSICIAN] - 1 Week Activity/Diet/Wound Care/Special Instructions: do not drive today Discharge Disposition: HOME SELF-CARE
[2018-02-06 14:39] VITALS: BP 123/59; PULSE 79
== END 2018-02-06 15:20 | disposition home or self-care (01) ==
LOC: OR 11:21
PROVIDERS: ATTEND Surgery
DX: N60.31 Fibrosclerosis of right breast (principal); N60.11 Diffuse cystic mastopathy of right breast; N60.81 Other benign mammary dysplasias of right breast; N60.91 Unspecified benign mammary dysplasia of right breast; I10 Essential (primary) hypertension; E03.9 Hypothyroidism, unspecified; K58.9 Irritable bowel syndrome, unspecified; F41.9 Anxiety disorder, unspecified; F32.9 Major depressive disorder, single episode, unspecified; Z87.891 Personal history of nicotine dependence; Z80.3 Family history of malignant neoplasm of breast; Z79.890 Hormone replacement therapy; Z79.899 Other long term (current) drug therapy; Z88.2 Allergy status to sulfonamides; Z91.040 Latex allergy status
CPT/HCPCS: 88305; 19120; J2250; J1644; J1100; J2405; J2001; J3010; J2704

== ENCOUNTER → 2018-02-15 | Outpatient (CLI) | payer BC ==
[2018-02-15 14:54] VITALS: BP 125/80; PULSE 78; TEMP 98.1
--- NOTE | 2018-02-15 15:10 | P.PN ---
Progress Note - Text Progress Note Date: 02/15/18 Patient is a 62-year-old white female status post excisional biopsy of area of concern in the right breast. Although this was felt to be most likely a sebaceous cyst preoperatively pathology revealed fibrocystic breast changes. The incision is clean and dry. The patient has no complaints related to the incision. She has had some reaction to the tape. Physical exam: Incision clean and dry Some skin excoriation related to the dressing Plan: 1. Conservative management 2. Repeat physician exam in 6 months CC: DR. Cantrell
== END | disposition home or self-care (01) ==
LOC: WWCWWP 14:40
PROVIDERS: ATTEND Surgery
DX: Z53.9 Procedure and treatment not carried out, unspecified reason (principal)

== ENCOUNTER → 2018-08-17 | Outpatient (CLI) | payer BC ==
[2018-08-17 09:05] VITALS: BP 146/85; PULSE 70; RESP 18; TEMP 97.5; BMI 31.3
--- NOTE | 2018-08-17 09:24 | P.PN ---
Subjective Progress Note Date: 08/17/18 Principal diagnosis: Excision of cystic lesion right breast January 2018 Geovanna is a 62-year-old white female status post excision of a cystic lesion right breast January 2018. The patient is doing well at this time with no complaints related to her breasts. Her last radiographic studies of her breast were in December [id number] after which it was recommended that she have special views and ultrasound of the right breast. In December 2017 she had a diagnostic right breast mammogram in which some nodularity persisted and an ultrasound was recommended. This was performed on the same day and she was noted to have a small cystic lesion. The feeling was that this was a benign BIRADS 2 lesion and routine screening of both breast which would be in November 2018 was recommended. The patient however had been noted to have what appeared to be a sebaceous cyst in the right breast and this was excised. The patient at this time has no complaints. Review of systems: HEENT: Patient wears glasses Lungs: Negative Heart: Negative, HTN GI: Intermittent constipation, last colonoscopy 2 years ago everything was okay : Negative Musculoskeletal: Negative Psychiatric: depression Social history: Smoke: Negative Alcohol: Occasional Drugs: Negative Objective - Vital Signs Vital signs: Vital Signs Temp 97.5 F L 08/17/18 08:57 Pulse 70 08/17/18 08:57 Resp 18 08/17/18 08:57 BP 146/85 08/17/18 08:57 Pulse Ox 100 08/17/18 08:57 Intake & Output 08/16/18 08/17/18 08/17/18 18:59 06:59 18:59 Weight 90.718 kg - Exam BMI 31.3 - Constitutional General appearance: Present: average body habitus - EENT Eyes: Present: EOMI ENT: Present: hearing grossly normal - Respiratory Respiratory: bilateral: CTA - Cardiovascular Rhythm: regular Heart sounds: normal: S1, S2 - Gastrointestinal General gastrointestinal: Present: soft - Integumentary Integumentary: Present: normal turgor - Musculoskeletal Musculoskeletal: Present: gait normal - Psychiatric Psychiatric: Present: A&O x's 3, appropriate affect, intact judgment & insight - Additional findings Additional findings: Breast exam: Right breast: Multi-positional exam well-healed scar from prior excision of cyst , no dominant masses or nodules of concern noted Right axilla: No adenopathy of concern Left breast: Multi-positional exam no dominant masses or nodules of concern Left axilla: No adenopathy of concern Assessment and Plan Assessment: Impression: 1. Fibrocystic breast changes 2. Well-healed scar from prior cyst removal right breast 3. Hypertension 4. Depression Plan: 1. Repeat bilateral mammogram in November/December with physician exam at that time 2. Medical management of medical conditions CC: Dr. Madi Cantrell
== END ==
LOC: WWCWWP 08:45
PROVIDERS: ATTEND Surgery
DX: Z53.9 Procedure and treatment not carried out, unspecified reason (principal)

== ENCOUNTER → 2018-12-31 | Outpatient (CLI) | payer BC ==
--- NOTE | 2018-12-31 08:45 | MM ---
Reason for exam: additional evaluation requested from prior study. Last mammogram was performed 1 year ago. History: Patient is postmenopausal. Family history of breast cancer in sister at age 66 and breast cancer in aunt at age 60. Took hormonal contraceptives for 10 years beginning at age 26. Took estrogen beginning at age 41. Took progesterone beginning at age 41. Physical Findings: Nurse did not find any significant physical abnormalities on exam. MG Diagnostic Mammo w CAD SUZY Bilateral CC and MLO view(s) were taken. Prior study comparison: December 27, 2017, right breast MG work up mamm w CAD RT. December 21, 2017, bilateral MG screening mammo w CAD. The breast tissue is heterogeneously dense. This may lower the sensitivity of mammography. There is a similar right retroareolar mass, corresponds to a cyst sonographically on the prior ultrasound. No suspicious abnormality. Post surgical change on the right. No significant new findings when compared with previous films. These results were verbally communicated with the patient and result sheet given to the patient on 12/31/18. ASSESSMENT: Benign, BI-RAD 2 RECOMMENDATION: Routine screening mammogram of both breasts in 1 year.
== END | disposition home or self-care (01) ==
LOC: RADMAMWWP 06:55
PROVIDERS: ATTEND Surgery
DX: R92.8 Other abnormal and inconclusive findings on diagnostic imaging of breast (principal)
CPT/HCPCS: 77066

== ENCOUNTER → 2019-01-10 | Outpatient (CLI) | payer BC ==
[2019-01-10 13:55] VITALS: BP 152/92; PULSE 88; RESP 18; TEMP 98.4; BMI 29.0
--- NOTE | 2019-01-10 14:15 | P.PN ---
Subjective Progress Note Date: 01/10/19 Principal diagnosis: Fibrocystic breast changes Geovanna is a 63-year-old white female who is status post excision of a cyst in the right breast in January 2018. This was benign. The patient has no complaints specifically related to her breast at this time. She had a bilateral mammogram [place] [id number] which was felt to be a benign BIRADS 2. There was a right retroareolar mass which corresponded to assist on the prior ultrasound. The recommendation via radiology was routine screening of prior breast in 1 year. The patient does not feel any lumps or masses in her breast. She is concerned about. She did however dropper curling iron onto her right breast and has a b urn on the right breast. Family history: 1. sister: Breast cancer at the age of 67 2. Paternal aunt: Breast cancer 3. Mother: Lung cancer Hormonal history: Menarche: 14 , breast fed: yes, age at first live : 24 menopause: Total hysterectomy at the age of 41 control pills: 4 years hormones: 10 years HRT premarin and provera Surgical history: 1. Cyst right wrist 2. Tubal ligation 3. Cholecystectomy 4. Appendectomy 5. Hysterectomy Medical history: 1. HTN 2. IBS 3. depression Social history: Smoking: Negative Alcohol: Occasional/once q 3 months Drugs: Negative Review of systems: HEENT: Wears glasses Lungs: Negative Heart: Hypertension GI: Negative bowel syndrome : Status post hysterectomy Musculoskeletal: Negative Neurologic: negative Psychiatric: Depression ALLERGIES: latix Objective - Vital Signs Vital signs: Vital Signs Temp 98.4 F 01/10/19 13:53 Pulse 88 01/10/19 13:53 Resp 18 01/10/19 13:53 BP 152/92 01/10/19 13:53 Pulse Ox 96 01/10/19 13:53 Intake & Output 01/09/19 01/10/19 01/10/19 18:59 06:59 18:59 Weight 86.636 kg - Exam BMI 29 - Constitutional General appearance: Present: average body habitus - EENT Eyes: Present: EOMI ENT: Present: hearing grossly normal - Neck Neck: Present: normal ROM - Respiratory Respiratory: bilateral: CTA - Cardiovascular Rhythm: regular Heart sounds: normal: S1, S2 - Gastrointestinal Gastrointestinal Comment(s): no guarding or rebound General gastrointestinal: Present: soft - Integumentary Integumentary: Present: normal turgor - Musculoskeletal Musculoskeletal: Present: gait normal - Psychiatric Psychiatric: Present: A&O x's 3, appropriate affect, intact judgment & insight - Additional findings Additional findings: breast exam: right breast: Multi-positional exam no dominant masses or nodules of concern Right axilla: No adenopathy of concern Left breast: Multi-positional exam no dominant masses or nodules of concern fibrocystic changes Left axilla: No adenopathy of concern Assessment and Plan Assessment: Impression: 1. HTN 2. IBS 3. depression 4. fibrocystic changes of breast 5. history of breast cancer in sister Plan: 1. repeat bilateral mammogram in one year with appointment 2. medical management of medical conditions CC: Dr. Madi Cantrell
== END ==
LOC: WWCWWP 13:31
PROVIDERS: ATTEND Surgery
DX: Z53.9 Procedure and treatment not carried out, unspecified reason (principal)

== ENCOUNTER → 2020-02-05 | Outpatient (CLI) | payer BC ==
--- NOTE | 2020-02-06 14:10 | MM ---
Reason for exam: screening (asymptomatic). Last mammogram was performed 1 year and 1 month ago. History: Patient is postmenopausal. Family history of breast cancer in sister at age 66 and breast cancer in aunt at age 60. Benign excisional biopsy of the right breast, 2018. Took hormonal contraceptives for 10 years beginning at age 26. Took estrogen for 10 years beginning at age 41. Took progesterone for 10 years beginning at age 41. Physical Findings: A clinical breast exam by your physician is recommended on an annual basis and results should be correlated with mammographic findings. MG Screening Mammo w CAD Bilateral CC and MLO view(s) were taken. Prior study comparison: December 31, 2018, bilateral MG diagnostic mammo w CAD SUZY. December 27, 2017, right breast MG work up mamm w CAD RT. There are scattered fibroglandular densities. Right subareolar mass continues to show slight size increase. Increasing density of the round mixed density lesion 4 o'clock posterior right breast, suspected fat necrosis. 6 month follow up recommended. ASSESSMENT: Probably benign, BI-RAD 3 RECOMMENDATION: Follow-up diagnostic mammogram of the right breast in 6 months.
== END | disposition home or self-care (01) ==
LOC: RADMAMWWP 15:15
PROVIDERS: ATTEND Family Medicine
DX: Z12.31 Encounter for screening mammogram for malignant neoplasm of breast (principal)
CPT/HCPCS: 77067

== ENCOUNTER 2020-06-17 11:14 | Observation (INO) | payer BC ==
[2020-06-17] MEDS ORDERED: NITROGLYCERIN SL TABS 0.4 MG TAB SUBLINGUAL STA (11:29)
[2020-06-17] MEDS ORDERED: ASPIRIN 81 MG PO STA (11:29)
--- NOTE | 2020-06-17 11:38 | ED ---
Chest Pain HPI - General Source: patient Mode of arrival: wheelchair Limitations: no limitations <Chan Hamilton - Last Filed: 06/17/20 13:56> <Bethany Osman - Last Filed: 06/25/20 09:04> - General Chief Complaint: Chest Pain Stated Complaint: chest pain Time Seen by Provider: 06/17/20 11:29 - History of Present Illness Initial Comments: 64-year-old female with history of hypertension presenting to the emergency department with chief complaint of chest pain. Patient reports upper, mid sternal chest pressure with gradual onset from 3 days ago. She reports she feels like she is "being sandwiched between the back and chest." She denies dyspnea on exertion. She denies any further episodes, lightheadedness or dizziness. She states the chest pressure is constant. She denies any nausea or vomiting or abdominal pain. Denies any headaches. States she does have a slight cough and [facility]. States that she was advised to come to the ED after she reported some chest pressure and was given 325 mg of aspirin. She denies any night sweats, fevers or chills. Denies any upper respiratory infection like symptoms. Denies history of smoking, or early cardiac related . States her last stress test was many years ago. (Chan Hamilton) - Related Data Home Medications Medication Instructions Recorded Confirmed Ergocalciferol [Vitamin D2 50,000 unit PO MO 10/10/16 06/17/20 (DRISDOL)] Hyoscyamine Sulfate [Levsin] 0.125 mg PO QID PRN 10/10/16 06/17/20 Venlafaxine HCl [Effexor XR] 150 mg PO HS 10/10/16 06/17/20 ramipriL [Altace] 10 mg PO BID 10/10/16 06/17/20 Levothyroxine Sodium [Synthroid] 50 mcg PO QAM 10/27/16 06/17/20 Allergies Allergy/AdvReac Type Severity Reaction Status Date / Time latex Allergy Rash/Hives Verified 06/17/20 12:39 Sulfa (Sulfonamide AdvReac Nausea & Verified 06/17/20 12:39 Antibiotics) Vomiting Review of Systems ROS Other: All systems not noted in ROS Statement are negative. <Chan Hamilton - Last Filed: 06/17/20 13:56> ROS Other: All systems not noted in ROS Statement are negative. <Bethany Osman Carol - Last Filed: 06/25/20 09:04> ROS Statement: Those systems with pertinent positive or pertinent negative responses have been documented in the HPI. EKG Findings - EKG Comments: EKG Findings:: Sinus rhythm, Q wave in lead 3. Ventricular rate 75, MT 168, QTC 426, QRS 70. <[email or web address] - Last Filed: 06/17/20 13:56> Past Medical History Past Medical History: Hypertension, Thyroid Disorder Additional Past Medical History / Comment(s): States "heart rate speeds up at times", IBS, hypothyroid. CYST RT BREAST. History of Any Multi-Drug Resistant Organisms: None Reported Past Surgical History: Appendectomy, Cholecystectomy, Hysterectomy Additional Past Surgical History / Comment(s): 10/13/16 colonoscopy-normal, R wrist cystectomy, APENDECTOMY 2017 Past Anesthesia/Blood Transfusion Reactions: Postoperative Nausea & Vomiting (PONV) Additional Past Anesthesia/Blood Transfusion Reaction / Comment(s): has hard time waking up with anesthesia. No hx blood transfusion Past Psychological History: Anxiety, Depression Smoking Status: Former smoker Past Alcohol Use History: Occasional Past Drug Use History: None Reported - Past Family History Mother Family Medical History: Cancer Additional Family Medical History / Comment(s): lung CA. Mother was a smoker. Father Additional Family Medical History / Comment(s): alcoholism Sister(s) Family Medical History: Cancer Additional Family Medical History / Comment(s): Breast CA 2016 <[email or web address] - Last Filed: 06/17/20 13:56> General Exam Limitations: no limitations General appearance: alert, in no apparent distress, obese Head exam: Present: atraumatic, normocephalic, normal inspection Eye exam: Present: normal appearance, PERRL, EOMI Pupils: Present: normal accommodation ENT exam: Present: normal exam, normal oropharynx, mucous membranes moist, TM's normal bilaterally, normal external ear exam Neck exam: Present: normal inspection, full ROM. Absent: tenderness Respiratory exam: Present: normal lung sounds bilaterally. Absent: respiratory distress, wheezes, rales Cardiovascular Exam: Present: regular rate, normal rhythm, normal heart sounds. Absent: systolic murmur, diastolic murmur Extremities exam: Present: normal inspection, full ROM, normal capillary refill, other (+2 ulnar and radial pulses bilaterally.). Absent: tenderness, pedal edema, joint swelling, calf tenderness Back exam: Present: normal inspection, full ROM. Absent: tenderness, CVA tenderness (R), CVA tenderness (L) Neurological exam: Present: alert, oriented X3, normal gait Psychiatric exam: Present: normal affect, normal mood. Absent: depressed, agitated Skin exam: Present: warm, dry, intact, normal color <Chan Hamilton - Last Filed: 06/17/20 13:56> Course Vital Signs 06/17/20 06/17/20 06/17/20 11:17 12:28 12:59 Temperature 97.8 F Pulse Rate 86 79 77 Respiratory 18 18 18 Rate Blood Pressure 154/78 139/81 135/79 O2 Sat by Pulse 98 97 97 Oximetry 06/17/20 06/17/20 13:58 16:46 Temperature Pulse Rate 86 77 Respiratory 18 18 Rate Blood Pressure 152/76 121/73 O2 Sat by Pulse 97 100 Oximetry Chest Pain MDM <Chan Hamilton - Last Filed: 06/17/20 13:56> <Bethany Osman - Last Filed: 06/25/20 09:04> - MDM 64-year-old female with history of hypertension presenting to the emergency department with a chief complaint of chest pain. Typical chest pain with atypical features. CBC CMP and coags within normal limits. Initial troponin negative. EKG showing Q wave in lead 3. No old EKGs to compare. Chest x-ray is unremarkable. Patient has not had a stress test in many years. Patient will be admitted for cardiac observation. Case discussed with Admitting is Dr Cantrell Cardiology on consult (Chan Hamilton) I was available for consultation in the emergency department. The history and physical exam were done by the midlevel provider. I was consulted for this patients care. I reviewed the case with the midlevel provider and based on their presentation of the patient, I agree with the assessment, medical decision making and plan of care as documented. I spoke with Dr. Cantrell who agreed to admit the patient. Chart was dictated using [employer] dictation software. Attempts were made to correct any dictation errors however some typographical errors may persist. Patient seen during the Covid-19 pandemic. (Bethany Osman) Disposition Is patient prescribed a controlled substance at d/c from ED?: No Time of Disposition: 13:58 <Chan Hamilton - Last Filed: 06/17/20 13:56> <Bethany Osman - Last Filed: 06/25/20 09:04> Clinical Impression: Chest pain Disposition: ADMITTED IP TO THIS HOSP Condition: Good
--- NOTE | 2020-06-17 12:08 | XR ---
EXAMINATION TYPE: XR chest 2V DATE OF EXAM: 06/17/2020 COMPARISON: NONE HISTORY: Shortness of breath TECHNIQUE: Frontal and lateral views of the chest are obtained. FINDINGS: Scattered senescent parenchymal changes noted. Hyperinflation compatible with COPD. No evidence for infiltrate. No evidence for atelectasis. Heart size is stable. Mediastinal structures are stable and grossly unremarkable. No evidence for hilar prominence. Degenerative changes dorsal spine. IMPRESSION: 1. No evidence for acute pulmonary disease.
[2020-06-17 12:26] LABS: Basophils # (A) 0.1 k/uL (0-0.2); Basophils % (A) 1 %; Eosinophils # (A) 0.1 k/uL (0-0.7); Eosinophils % (A) 2 %; HCT 43.8 % (34.0-46.0); HGB 14.8 gm/dL (11.4-16.0); Lymphocytes # (A) 1.6 k/uL (1.0-4.8); Lymphocytes % (A) 23 %; MCH 30.5 pg (25.0-35.0); MCHC 33.9 g/dL (31.0-37.0); Mean Platelet Volume 7.5; Monocytes # (A) 0.4 k/uL (0-1.0); Monocytes % (A) 5 %; Neutrophils # (A) 4.9 k/uL (1.3-7.7); Neutrophils % (A) 69 %; Platelet Count 206 k/uL (150-450); RBC 4.86 m/uL (3.80-5.40); RDW 12.2 % (11.5-15.5); WBC 7.2 k/uL (3.8-10.6)
[2020-06-17 12:35] LABS: INR 0.9 (<1.2); Partial Thromboplastin Time 25.7 sec (22.0-30.0); Prothrombin Time 9.9 sec (9.0-12.0)
[2020-06-17 12:37] LABS: ALT 19 U/L (4-34); AST 29 U/L (14-36); African American GFR (CKD) >90 (>60 ml/min/1.73 sqM); Albumin 4.5 g/dL (3.5-5.0); Alkaline Phosphatase 87 U/L (38-126); Anion Gap 7 mmol/L; Blood Urea Nitrogen 15 mg/dL (7-17); Calcium 9.3 mg/dL (8.4-10.2); Carbon Dioxide 25 mmol/L (22-30); Chloride 104 mmol/L (98-107); Glucose 98 mg/dL (74-99); Magnesium 2.1 mg/dL (1.6-2.3); Non-African American GFR(CKD) >90 (>60 ml/min/1.73 sqM); Potassium 4.7 mmol/L (3.5-5.1); Sodium 136 mmol/L (137-145); Total Bilirubin 0.6 mg/dL (0.2-1.3); Total Protein 7.2 g/dL (6.3-8.2)
[2020-06-17] MEDS ORDERED: NITROGLYCERIN SL TABS 0.4 MG TAB SUBLINGUAL PRN ×2 (13:05→13:47)
[2020-06-17] MEDS ORDERED: NITROGLYCERIN SL TABS 0.4 MG TAB SUBLINGUAL ONE (13:05)
[2020-06-17 17:42] VITALS: RESP 16
[2020-06-17] MEDS ORDERED: HYOSCYAMINE SULFATE 0.125 MG TAB PO PRN (18:27)
[2020-06-17] MEDS ORDERED: ACETAMINOPHEN TAB 325 MG TAB PO PRN (20:01)
[2020-06-17] MEDS ORDERED: VENLAFAXINE HCL ER 150 MG CAP PO SCH (21:00)
[2020-06-18 05:53] VITALS: PULSE 77
[2020-06-18] MEDS ORDERED: LEVOTHYROXINE 50 MCG TAB PO SCH (06:30)
[2020-06-18 08:21] LABS: Cholesterol 183 mg/dL (<200); HDL Cholesterol 57 mg/dL (40-60); LDL Cholesterol,Calculated 103 mg/dL (0-99); Triglycerides 115 mg/dL (<150)
[2020-06-18] MEDS ORDERED: lisinopriL 20 MG TAB PO SCH (09:00)
[2020-06-18] MEDS ORDERED: ASPIRIN 325 MG TAB PO SCH (09:00)
[2020-06-18 09:20] VITALS: BP 160/88; TEMP 98
--- NOTE | 2020-06-18 10:43 | CONS ---
CONSULTATION Mrs. Craven is a 64-year-old female with no prior documented history of coronary artery disease who was exposed to COVID-19 and went to [facility] to have a test. She describes some discomfort in the chest. Because of that, she was sent to the emergency room and subsequently admitted. For the last 2 days, she has been complaining of some tightness in the chest, not activity related, constant and not associated with any other symptoms. She is usually active physically without any symptoms of dyspnea on exertion. No dizziness. No palpitation. No syncope. She has no history of myocardial infarction or congestive heart failure. She has no history of PND, orthopnea. No peripheral edema. She had no recent cardiac workup. Her coronary risk factors are negative for smoking. She has hypertension. She is nondiabetic. MEDICATION: At home include ramipril, vitamin D, Levsin, Synthroid and Effexor. PHYSICAL EXAMINATION: GENERAL: A 64-year-old female, alert, oriented, in no apparent distress. VITAL SIGNS: Blood pressure running in the 130s with a heart rate in the 80s. HEAD: Normocephalic. Eyes, sclerae nonicteric. NECK: Good carotid upstroke. No bruit. No jugular venous distention. LUNGS: Clear to auscultation. HEART: Regular rate and rhythm S1, S2. No S3. No S4. No murmur or rub. ABDOMEN: Soft, nontender. Positive bowel sounds. No organomegaly. EXTREMITIES: No edema. Intact distal pulses. REVIEW OF SYSTEMS: RESPIRATORY SYSTEM: She has no recent wheezing or cough. GI SYSTEM: No recent GI bleeding. No peptic ulcer disease. SYSTEM: No dysuria or hematuria. NERVOUS SYSTEM: No stroke or seizure. LAB DATA: Revealed troponin less than 0.012 for 3 samples, cholesterol 183, LDL 103, BUN and creatinine 15 and 0.72. Potassium 14.8. EKG revealed sinus mechanism, normal axis and intervals, rate of 75, normal electrocardiogram. Chest x-ray shows no acute infiltrate. IMPRESSION: 1. Chest discomfort, atypical for ischemic heart disease, probably noncardiac. 2. Hypertension. RECOMMENDATION: I will obtain echocardiogram with Doppler. If there is no evidence of abnormality, I would expect she should be able to be discharged home today and followed as an outpatient. Thank you for this consult. We will follow with you. MMODL / IJN: [id number] /
[2020-06-18] MEDS ORDERED: amLODIPine 5 MG TAB PO SCH (14:15)
[2020-06-19] MEDS ORDERED: lisinopriL 20 MG TAB PO SCH (09:00)
[2020-06-19] MEDS ORDERED: ASPIRIN 81 MG PO SCH (09:00)
[2020-06-22] MEDS ORDERED: ERGOCALCIFEROL 50,000 UNIT CAP PO SCH (09:00)
--- NOTE | 2020-06-29 14:53 | P.HPIM ---
History of Present Illness Diagnoses: Chest pain/tightness, resolved. Patient cleared for discharge by aging room hand Hypertension History of hypothyroidism Hospital course: This is a pleasant 64 years old female with past medical history of hypertension and hypothyroidism. Presents because of chest tightness. Possible recent exposure to covid 19. Patient has been evaluated by aging room hand Dr. Garza who cleared her for discharge, also I recommended echocardiogram but patient does not want for the test. As environmental field technician is not available, aging room hand referred for that to be done as outpatient After aging room hand evaluated the patient and cleared her for discharge she was so eager to go home that bedside nurse called me stating that patient saying it she is recommended to discharge soon then she will leave AMA. I want to see the patient she was sitting in chair completely comfortable sitting at her chest pain has disappeared and now it is 0/10 and that she wants to go home. Vitals and labs were reviewed Problems and management plan were discussed with the patient and he verbalized understanding and acceptance Patient was found stable and can be discharged home however he needs follow-up as an outpatient. Patient was instructed to follow up with PCP within one week and patient agrees Gen: patient is a AAOx3, no distress CVS: S1-S2, RRR, no murmur Lungs: B/L CTA, no wheezing Abdomen: soft, no distention, no tenderness, positive bowel sounds Extremity: no leg edema or induration Time spent more than 35 minutes Past Medical History Past Medical History: Hypertension, Thyroid Disorder Additional Past Medical History / Comment(s): States "heart rate speeds up at times", IBS, hypothyroid. CYST RT BREAST. History of Any Multi-Drug Resistant Organisms: None Reported Past Surgical History: Appendectomy, Cholecystectomy, Hysterectomy Additional Past Surgical History / Comment(s): 10/13/16 colonoscopy-normal, R wrist cystectomy, APENDECTOMY 2017 Past Anesthesia/Blood Transfusion Reactions: Postoperative Nausea & Vomiting (PONV) Additional Past Anesthesia/Blood Transfusion Reaction / Comment(s): has hard time waking up with anesthesia. No hx blood transfusion Past Psychological History: Anxiety, Depression Additional Psychological History / Comment(s): Pt resides with her spouse. She is independent. Smoking Status: Former smoker Past Alcohol Use History: Occasional Additional Past Alcohol Use History / Comment(s): quit smoking approx 2006, smoked for 3 yrs approx <1ppd Past Drug Use History: None Reported - Past Family History Mother Family Medical History: Cancer Additional Family Medical History / Comment(s): lung CA. Mother was a smoker. Father Additional Family Medical History / Comment(s): alcoholism Sister(s) Family Medical History: Cancer Additional Family Medical History / Comment(s): Breast CA 2015 Medications and Allergies Home Medications Medication Instructions Recorded Confirmed Type Ergocalciferol [Vitamin D2 50,000 unit PO MO 10/10/16 06/17/20 History (DRISDOL)] Hyoscyamine Sulfate [Levsin] 0.125 mg PO QID PRN 10/10/16 06/17/20 History Venlafaxine HCl [Effexor XR] 150 mg PO HS 10/10/16 06/17/20 History ramipriL [Altace] 10 mg PO BID 10/10/16 06/17/20 History Levothyroxine Sodium [Synthroid] 50 mcg PO QAM 10/27/16 06/17/20 History Allergies Allergy/AdvReac Type Severity Reaction Status Date / Time latex Allergy Rash/Hives Verified 06/17/20 12:39 Sulfa (Sulfonamide AdvReac Nausea & Verified 06/17/20 12:39 Antibiotics) Vomiting Physical Exam Vitals: Vital Signs Temp Pulse Resp BP Pulse Ox 06/18/20 09:00 77 16 06/18/20 08:29 98.0 F 77 16 160/88 99 06/18/20 03:00 97.7 F 77 16 159/79 97 06/17/20 20:57 97.6 F 82 16 132/66 99 06/17/20 18:06 98.2 F Intake and Output 06/18/20 06/18/20 06/18/20 06:59 14:59 22:59 Intake Total 540 Balance 540 Intake: Oral 540 Other: Voiding Method Toilet # Voids 2 2 Results CBC & Chem 7: 06/17/20 12:16 06/17/20 12:16 Labs: Abnormal Lab Results - Last 24 Hours (Table) 06/17/20 Range/Units 12:16 LDL Cholesterol, Calc 103 H (0-99) mg/dL Thrombosis Risk Factor Assmnt - Choose All That Apply Any of the Below Risk Factors Present?: Yes Each Factor Represents 1 point: Obesity (BMI >25) Other Risk Factors: Yes Each Risk Factor Represents 2 Points: Age 61-74 years Other congenital or acquired thrombophilia - If yes, enter type in comment: No Thrombosis Risk Factor Assessment Total Risk Factor Score: 3 Thrombosis Risk Factor Assessment Level: Moderate Risk
== END 2020-06-18 14:34 | disposition home or self-care (01) ==
LOC: EC 11:14 → 1SOBS 13:48
PROVIDERS: ADMIT Family Medicine; ATTEND Family Medicine
DX: R07.89 Other chest pain (principal); R05 Cough; I10 Essential (primary) hypertension; K58.9 Irritable bowel syndrome, unspecified; N60.01 Solitary cyst of right breast; F41.9 Anxiety disorder, unspecified; F32.9 Major depressive disorder, single episode, unspecified; E03.9 Hypothyroidism, unspecified; E66.9 Obesity, unspecified; Z68.31 Body mass index [BMI] 31.0-31.9, adult; Z79.890 Hormone replacement therapy; Z79.899 Other long term (current) drug therapy; Z88.2 Allergy status to sulfonamides; Z91.040 Latex allergy status; Z87.891 Personal history of nicotine dependence; Z20.828 Contact with and (suspected) exposure to other viral communicable diseases; Z90.49 Acquired absence of other specified parts of digestive tract; Z90.710 Acquired absence of both cervix and uterus; Z80.1 Family history of malignant neoplasm of trachea, bronchus and lung; Z81.1 Family history of alcohol abuse and dependence; Z80.3 Family history of malignant neoplasm of breast
CPT/HCPCS: 93005 ×2; 99285; 36415; 80061; 80053; 83735; 84484; 85025; 85610; 85730; 71046; G0378 ×2

== ENCOUNTER → 2020-12-07 | Outpatient (CLI) | payer BC ==
[2020-12-07 16:10] LABS: Ferritin 179.2 ng/mL (10.0-291.0)
== END | disposition home or self-care (01) ==
LOC: LABWHC1 07:56
PROVIDERS: ATTEND Psychiatry & Neurology Neurology
DX: G25.81 Restless legs syndrome (principal); G62.9 Polyneuropathy, unspecified
CPT/HCPCS: 36415; 82607; 82728; 83540; 84207

== ENCOUNTER → 2021-02-10 | Outpatient (CLI) | payer BC ==
--- NOTE | 2021-02-11 09:57 | MM ---
Reason for exam: screening (asymptomatic). Last mammogram was performed 1 year ago. History: Patient is postmenopausal. Family history of breast cancer in aunt at age 60 and breast cancer in sister at age 66. Benign excisional biopsy of the right breast, 2018. Took hormonal contraceptives for 10 years beginning at age 26. Took estrogen for 10 years beginning at age 41. Took progesterone for 10 years beginning at age 41. Physical Findings: A clinical breast exam by your physician is recommended on an annual basis and results should be correlated with mammographic findings. MG Screening Mammo w CAD Bilateral CC and MLO view(s) were taken. Prior study comparison: February 05, 2020, bilateral MG screening mammo w CAD. December 31, 2018, bilateral MG diagnostic mammo w CAD SUZY. The breast tissue is heterogeneously dense. This may lower the sensitivity of mammography. There is chronic nodularity in the right breast. There is no dominant lesion. No significant changes when compared with prior studies. ASSESSMENT: Benign, BI-RAD 2 RECOMMENDATION: Routine screening mammogram of both breasts in 1 year.
== END | disposition home or self-care (01) ==
LOC: RADMAMWWP 16:44
PROVIDERS: ATTEND Family Medicine
DX: Z12.31 Encounter for screening mammogram for malignant neoplasm of breast (principal); Z78.0 Asymptomatic menopausal state; Z80.3 Family history of malignant neoplasm of breast
CPT/HCPCS: 77067

== ENCOUNTER 2021-09-20 14:15 | Emergency (ER) | payer BC, MEDICARE ==
[2021-09-20 14:20] VITALS: TEMP 97.9
[2021-09-20] MEDS ORDERED: DIPH,PERTUS(ACELL)TETVAC-LF 0.5 ML VIAL IM ONE (14:41)
--- NOTE | 2021-09-20 14:42 | ED ---
General Adult HPI - General Chief complaint: Fall Stated complaint: Fall/Facial Injury Time Seen by Provider: 09/20/21 14:35 Source: patient Mode of arrival: ambulatory Limitations: no limitations - History of Present Illness Initial comments: Dictation was produced using [email or web address] dictation software. please excuse any grammatical, word or spelling errors. Chief Complaint: 66-year-old feel presents with head injury History of Present Illness: 66-year-old female. She was at lunch with her when after the meal the left the restaurant. There was a curb that she tripped over. She fell forward tried to catch herself at a hitting her face on the ground. She denies any loss of consciousness. She does not take any antiplatelet coagulation medications. She did have some nose bleeding. She initially had some right wrist pain and some right knee pain but now seems to be okay. The ROS documented in this emergency department record has been reviewed and confirmed by me. Those systems with pertinent positive or negative responses have been documented in the HPI. All other systems are other negative and/or noncontributory. PHYSICAL EXAM: General Impression: Alert and oriented x3, not in acute distress HEENT: Abrasions to the nose and chin, there does appear to be a small 3 mm laceration to the bridge of the nose, extra-ocular movements intact, pupils equal and reactive to light bilaterally, mucous membranes moist. Cardiovascular: Heart regular rate and rhythm Chest: Able to complete full sentences, no retractions, no tachypnea Abdomen: abdomen soft, non-tender, non-distended, no organomegaly Musculoskeletal: Pulses present and equal in all extremities, no peripheral edema Motor: no focal deficits noted Neurological: CN II-XII grossly intact, no focal motor or sensory deficits noted Skin: Intact with no visualized rashes Psych: Normal affect and mood ED course: 66-year-old female presents to emergency Department with blunt face injury. Vital signs upon arrival shows heart rate of 1:30, rest of vital signs within acceptable limits. Computed tomography scan of the brain, computed tomography scan of the face and brain shows no acute fractures or intracranial acute findings.. Laceration repaired using Dermabond. Repeat heart rate is 99. - Related Data Home Medications Medication Instructions Recorded Confirmed Ergocalciferol [Vitamin D2 50,000 unit PO MO 10/10/16 06/17/20 (DRISDOL)] Hyoscyamine Sulfate [Levsin] 0.125 mg PO QID PRN 10/10/16 06/17/20 Venlafaxine HCl [Effexor XR] 150 mg PO HS 10/10/16 06/17/20 ramipriL [Altace] 10 mg PO BID 10/10/16 06/17/20 Levothyroxine Sodium [Synthroid] 50 mcg PO QAM 10/27/16 06/17/20 Allergies Allergy/AdvReac Type Severity Reaction Status Date / Time latex Allergy Rash/Hives Verified 09/20/21 14:16 Sulfa (Sulfonamide AdvReac Nausea & Verified 09/20/21 14:16 Antibiotics) Vomiting Review of Systems ROS Statement: Those systems with pertinent positive or pertinent negative responses have been documented in the HPI. ROS Other: All systems not noted in ROS Statement are negative. Past Medical History Past Medical History: Hypertension, Thyroid Disorder Additional Past Medical History / Comment(s): States "heart rate speeds up at times", IBS, hypothyroid. CYST RT BREAST. History of Any Multi-Drug Resistant Organisms: None Reported Past Surgical History: Appendectomy, Cholecystectomy, Hysterectomy Additional Past Surgical History / Comment(s): 10/13/16 colonoscopy-normal, R wrist cystectomy, APENDECTOMY 2017 Past Anesthesia/Blood Transfusion Reactions: Postoperative Nausea & Vomiting (PONV) Additional Past Anesthesia/Blood Transfusion Reaction / Comment(s): has hard time waking up with anesthesia. No hx blood transfusion Past Psychological History: Anxiety, Depression Smoking Status: Former smoker Past Alcohol Use History: Occasional Past Drug Use History: None Reported - Past Family History Mother Family Medical History: Cancer Additional Family Medical History / Comment(s): lung CA. Mother was a smoker. Father Additional Family Medical History / Comment(s): alcoholism Sister(s) Family Medical History: Cancer Additional Family Medical History / Comment(s): Breast CA 2016 General Exam Limitations: no limitations Course Vital Signs 09/20/21 09/20/21 14:16 15:40 Temperature 97.9 F Pulse Rate 130 H 99 Respiratory 18 20 Rate Blood Pressure 184/113 145/85 O2 Sat by Pulse 99 98 Oximetry Procedures - Laceration Laceration #1 Consent Obtained: verbal consent Indication: laceration Site: face (bridge of nose) Description: linear (3mm) Size of Sutures: other (dermabond) Technique: other Patient Tolerated Procedure: well Disposition Clinical Impression: Fall, Contusion of face Disposition: HOME SELF-CARE Instructions (If sedation given, give patient instructions): Fall Prevention for Older Adults (ED) Is patient prescribed a controlled substance at d/c from ED?: No Referrals: Madi Cantrell DO [Primary Care Provider] - 1-2 days
[2021-09-20 15:40] VITALS: BP 145/85; PULSE 99; RESP 20
--- NOTE | 2021-09-20 15:45 | CT ---
EXAMINATION TYPE: CT brain wo con, CT facial bones wo con DATE OF EXAM: 09/20/2021 COMPARISON: Unavailable HISTORY: fall CT DLP: combined DLP 471.3 mGycm Automated exposure control for dose reduction was used. TECHNIQUE: Multiplanar CT scan of the brain and facial bones is performed without IV contrast adminis tration. FINDINGS: Unremarkable morphology of the cerebral hemispheres, cerebellum and brainstem. No acute intracranial hemorrhage. No gross acute cortical infarct. No midline shift, herniation or ventriculectomy. Unremar kable espinoza-white matter differentiation, basal cisterns, sella and CP angles. No gross space-occupyin g lesion, vasogenic edema or mass effect. Unremarkable orbits. Mild mucosal thickening of the right posterior ethmoid air cells. Clear remainde r of the paranasal sinuses and mastoid air cells. No definite acute calvarial bone or facial bone fra cture identified. Subtle sclerotic changes in the right mandibular condyle without bone destruction, likely benign. Deg enerative changes of the visualized portion of the cervical spine. Deviated bony nasal septum convex to the left side. Mild soft tissue swelling overlying the right side of the symphysis menti. IMPRESSION: No acute intracranial posttraumatic sequela or acute calvarial bone fracture. No definite facial bone fracture identified. Soft tissue swelling overlying the right side of the symphysis menti, please co rrelate clinically. Other incidental findings as described above.
[2021-09-20] MEDS ORDERED: TOPICAL SKIN ADHESIVE 1 EACH AMP TOPICAL ONE (15:51)
== END 2021-09-20 16:18 | disposition home or self-care (01) ==
LOC: EC 14:15
DX: S01.21XA Laceration without foreign body of nose, initial encounter (principal); I10 Essential (primary) hypertension; F32.A Depression, unspecified; F41.9 Anxiety disorder, unspecified; Z87.891 Personal history of nicotine dependence; Z79.890 Hormone replacement therapy; Z79.899 Other long term (current) drug therapy; W01.0XXA Fall on same level from slipping, tripping and stumbling without subsequent striking against object, initial encounter; Y92.511 Restaurant or cafe as the place of occurrence of the external cause
CPT/HCPCS: 12011; 70450; 70486; 90471; 90715; 99284

== ENCOUNTER → 2022-02-11 | Outpatient (CLI) | payer MEDICARE ==
--- NOTE | 2022-02-14 17:06 | MM ---
Reason for Exam: Screening (asymptomatic). Last screening mammogram was performed 12 month(s) ago. Patient History: Menarche at age 14. First Full-Term at age 25. Left ovary removed at age 41. Right ovary removed at age 41. Hysterectomy at age 41. Postmenopausal. Estrogen for 10 years from age 41 until age 51. Progesterone for 10 years from age 41 until age 51. Hormonal Contraceptives for 10 years from age 26 until age 36. 2018, Benign Excisional Biopsy on the right side. Paternal aunt had breast cancer, age 60. Sister had breast cancer, age 66. Risk Values: Candace 5 year model risk: 3.7%. NCI Lifetime model risk: 13.6%. Prior Study Comparison: 12/31/2018 Bilateral Diagnostic Mammogram, [facility]. 02/05/2020 Bilateral Screening Mammogram, [facility]. 02/10/2021 Bilateral Screening Mammogram, [facility]. Tissue Density: There are scattered fibroglandular densities. Findings: Analyzed By CAD. Chronic nodularity is within the right breast. No significant interval changes are evident. No suspicious groups of microcalcifications, spiculated or lobular masses, architectural distortion or other secondary signs of malignancy are mammographically apparent. Overall Assessment: Benign, BI-RAD 2 Management: Screening Mammogram of both breasts in 1 year. A negative mammogram report should not preclude additional follow up of suspicious palpable abnormalities. Patient should continue monthly self breast exam. A clinical breast exam by your physician is recommended on an annual basis and results should be correlated with mammographic findings. Electronically signed and approved by: Usama Simental D.O. Radiologis
== END | disposition home or self-care (01) ==
LOC: RADMAMWWP 09:52
PROVIDERS: ATTEND Family Medicine
DX: Z12.31 Encounter for screening mammogram for malignant neoplasm of breast (principal); Z80.3 Family history of malignant neoplasm of breast; Z78.0 Asymptomatic menopausal state
CPT/HCPCS: 77067

== ENCOUNTER → 2022-05-06 | Outpatient (CLI) | payer MEDICARE ==
[2022-05-06 14:30] VITALS: BP 151/77; PULSE 124; RESP 18; TEMP 98.4
--- NOTE | 2022-05-06 14:57 | P.GSHP ---
History of Present Illness H&P Date: 05/06/22 Chief Complaint: breast pain Geovanna is a 66 year old white female seen in consultation for Dr. Cantrell regarding right nipple burning for several weeks. It wakes her up at night. It is not constant. It spreads to under her arm. She is not planning of any pain in the left side. No nipple discharge. She is not complaining of any lumps masses or nodules of concern in either breast. She had a bilateral mammogram performed on [id number] which was benign BIRADS 2. She has not had any trauma the breast. She had a left breast nodule removed in the remote past. Caffeine: 1 cup/day nicotine: none; 2004 stopped used to smoke 1 pack/week chocolate: weekly BCP: 10 years stopped in 1995 Family History: mother: lung cancer sister: breast cancer at 66 paternal aunt: breast cancer Hormonal history: Menarche: 14 , breast fed: yes, age at first : 25 menopause: Abdominal hysterectomy at 41 secondary to bleeding HRT: stopped at 51 Surgical History: total abdominal hysterectomy gallbladder appy cyst right wrist left breaset biopsy Medical History: HTN depression IBS restless leg hypothyroid Social history: Nicotine: Smoked 1 pack per week for approximately 3 years stopped in 2004 Alcohol: Occasional Drugs: - Constitutional Constitutional: Reports fever, Reports sweats - EENT Eyes: denies blurred vision, denies pain Ears, nose, mouth and throat: Denies headache, Denies sore throat - Breasts Breasts: bilateral: as per HPI - Cardiovascular Cardiovascular: Denies chest pain, Denies shortness of breath - Respiratory Respiratory: Denies cough, Denies 7 - Gastrointestinal Gastrointestinal: Denies abdominal pain, Denies diarrhea, Denies nausea, Denies vomiting - Genitourinary (Female) Genitourinary: Denies dysuria, Denies hematuria - Menstruation Menstruation: Reports post hysterectomy - Musculoskeletal Comment: right shoulder - Integumentary Integumentary: Denies pruritus, Denies rash - Neurological Neurological: Reports numbness, Denies weakness - Psychiatric Psychiatric: Reports anxiety, Reports depression - Endocrine Endocrine: Denies fatigue, Denies weight change - Hematologic/Lymphatic Comment: none - Allergic/Immunologic Allergic/Immunologic: Reports as per HPI Past Medical History Past Medical History: Hypertension, Thyroid Disorder Additional Past Medical History / Comment(s): States "heart rate speeds up at times", IBS, hypothyroid. CYST RT BREAST. History of Any Multi-Drug Resistant Organisms: None Reported Past Surgical History: Appendectomy, Cholecystectomy, Hysterectomy Additional Past Surgical History / Comment(s): 10/13/16 colonoscopy-normal, R wrist cystectomy, APENDECTOMY 2016 Past Anesthesia/Blood Transfusion Reactions: Postoperative Nausea & Vomiting (PONV) Additional Past Anesthesia/Blood Transfusion Reaction / Comment(s): has hard time waking up with anesthesia. No hx blood transfusion Past Psychological History: Anxiety, Depression Additional Psychological History / Comment(s): Pt resides with her spouse. She is independent. Smoking Status: Former smoker Past Alcohol Use History: Occasional Additional Past Alcohol Use History / Comment(s): quit smoking approx 2006, smoked for 3 yrs approx <1ppd Past Drug Use History: None Reported - Past Family History Mother Family Medical History: Cancer Additional Family Medical History / Comment(s): lung CA. Mother was a smoker. Father Additional Family Medical History / Comment(s): alcoholism Sister(s) Family Medical History: Cancer Additional Family Medical History / Comment(s): Breast CA 2015 Medications and Allergies Home Medications Medication Instructions Recorded Confirmed Type Ergocalciferol [Vitamin D2 50,000 unit PO MO 10/10/16 05/06/22 History (DRISDOL)] Hyoscyamine Sulfate [Levsin] 0.125 mg PO QID PRN 10/10/16 05/06/22 History Venlafaxine HCl [Effexor XR] 150 mg PO HS 10/10/16 05/06/22 History ramipriL [Altace] 10 mg PO BID 10/10/16 05/06/22 History Levothyroxine Sodium [Synthroid] 50 mcg PO QAM 10/27/16 05/06/22 History Allergies Allergy/AdvReac Type Severity Reaction Status Date / Time latex Allergy Rash/Hives Verified 05/06/22 14:30 Sulfa (Sulfonamide AdvReac Nausea & Verified 05/06/22 14:30 Antibiotics) Vomiting Surgical - Exam Vital Signs Temp Pulse Resp BP Pulse Ox 98.4 F 124 H 18 151/77 98 05/06/22 14:25 05/06/22 14:25 05/06/22 14:25 05/06/22 14:25 05/06/22 14:25 BMI" 31.3 - General no distress - Eyes normal ocular movement - Neck trachea midline - Respiratory normal respiratory effort, clear to auscultation - Cardiovascular Rhythm: regular Heart Sounds: normal: S1, S2 - Abdomen Abdomen: soft, non tender, no guarding, no rigid, no rebound - Integumentary normal turgor - Neurologic no disoriented, no combative - Musculoskeletal normal gait, normal posture - Psychiatric oriented to time, oriented to person, oriented to place, speech is normal, memory intact Breast Exam: BRA: 40D inspection: Bilateral grade 2 ptosis Palpation: Right breast: Multiple positional exam fibrocystic changes no dominant masses or not his of concern, particularly attention to the area behind the nipple areolar complex does not reveal any specific lesion of concern Right axilla: No adenopathy of concern Left breast: Multi-positional exam fibrocystic changes no dominant masses or nodules of concern Left axilla: No adenopathy of concern Results Patient's [place] mammogram was [id number] this was benign BIRADS 2 Assessment and Plan Assessment: Impression: Fibrocystic breast changes Burning pain posterior right nipple areolar complex intermittent in nature Plan: Repeat right breast mammogram and ultrasound of the area behind the nipple areolar complex Follow-up after radiographic studies done Cc: Dr. Madi Cantrell
== END ==
LOC: WWCWWP 13:42
PROVIDERS: ATTEND Surgery
DX: N60.11 Diffuse cystic mastopathy of right breast (principal); N60.12 Diffuse cystic mastopathy of left breast; N64.4 Mastodynia; Z87.891 Personal history of nicotine dependence; Z91.040 Latex allergy status; Z88.2 Allergy status to sulfonamides; E66.9 Obesity, unspecified; Z68.31 Body mass index [BMI] 31.0-31.9, adult

== ENCOUNTER → 2022-05-27 | Outpatient (CLI) | payer MEDICARE ==
--- NOTE | 2022-05-27 14:29 | USB ---
Patient History: Menarche at age 14. First Full-Term at age 25. Left ovary removed at age 41. Right ovary removed at age 41. Hysterectomy at age 41. Postmenopausal. Patient has history of breast feeding. Estrogen for 10 years from age 41 until age 51. Progesterone for 10 years from age 41 until age 51. Hormonal Contraceptives for 10 years from age 26 until age 36. 2018, Benign Excisional Biopsy on the right side. Paternal aunt had breast cancer, age 60. Sister had breast cancer, age 66. Risk Values: Candace 5 year model risk: 3.7%. NCI Lifetime model risk: 13.6%. Technique: Method: Targeted. Prior Study Comparison: 02/05/2020 Bilateral Screening Mammogram, [facility]. 02/10/2021 Bilateral Screening Mammogram, [facility]. 02/11/2022 Bilateral MG screening mammo w CAD, [facility]. Findings: The upper outer quadrant of the right breast, the axilla of the right breast and the retroareolar of the right breast were scanned. A complete US of limited of the right breast and retro-areolar region were reviewed. No solid or cystic masses are identified. Anechoic lesion retroareolar of the nipple measuring up to 11 x 7 mm. There may be some through transmission on this lesion. Hypoechoic lesion at 11:00 3 cm from nipple measuring 4 x 3 x 5 mm. There may be some through transmission on this lesion. Overall Assessment: Probably benign, BI-RAD 3 Management: Diagnostic Breast Ultrasound of the right breast in 6 months. Six-month follow-up ultrasound to ensure stability of 2 lesions within the right breast. Findings are thought to represent complicated cysts. A clinical breast exam by your physician is recommended on an annual basis and results should be correlated with mammographic findings. This exam should not preclude additional follow-up of suspicious palpable abnormalities. Results were given to the patient verbally at the time of exam. Electronically signed and approved by: Fredy Christina DO
--- NOTE | 2022-05-27 14:31 | MM ---
Reason for Exam: Follow-up at short interval from prior study. Last screening mammogram was performed 4 month(s) ago. Indicated Problems: Pain of the right side (Global) for 1 Month(s) : pain behind rt nipple radiates into axilla off and on 1 month. Patient History: Menarche at age 14. First Full-Term at age 25. Left ovary removed at age 41. Right ovary removed at age 41. Hysterectomy at age 41. Postmenopausal. Patient has history of breast feeding. Estrogen for 10 years from age 41 until age 51. Progesterone for 10 years from age 41 until age 51. Hormonal Contraceptives for 10 years from age 26 until age 36. 2018, Benign Excisional Biopsy on the right side. Paternal aunt had breast cancer, age 60. Sister had breast cancer, age 66. Risk Values: Candace 5 year model risk: 3.7%. NCI Lifetime model risk: 13.6%. Prior Study Comparison: 08/31/2011 Screening Mammogram, [place]. 05/25/2016 Bilateral Screening Mammogram, [facility]. 05/30/2016 Left Diagnostic Mammogram, [facility]. 05/30/2016 Left Diagnostic Ultrasound, [facility]. 11/28/2016 Left Diagnostic Mammogram, [facility]. 12/21/2017 Bilateral Screening Mammogram, [facility]. 12/27/2017 Right Diagnostic Mammogram, [facility]. 12/27/2017 Right Diagnostic Ultrasound, [facility]. 12/31/2018 Bilateral Diagnostic Mammogram, [facility]. 02/05/2020 Bilateral Screening Mammogram, [facility]. 02/10/2021 Bilateral Screening Mammogram, [facility]. 02/11/2022 Bilateral MG screening mammo w CAD, [facility]. Tissue Density: Right: There are scattered fibroglandular densities. Findings: Analyzed By CAD. Similar lesion within the right breast retroareolar region when comparing to multiple priors. Additional gliosis seen in the posterior depth. Overall Assessment: Probably benign, BI-RAD 3 Management: Screening Mammogram of both breasts in 1 year. Diagnostic Breast Ultrasound of the right breast in 6 months. Screening mammogram in one year and follow-up ultrasound of the right breast and 6 months to ensure stability. A clinical breast exam by your physician is recommended on an annual basis and results should be correlated with mammographic findings. This exam should not preclude additional follow-up of suspicious palpable abnormalities. Results were given to the patient verbally at the time of exam. Electronically signed and approved by: Fredy Christina, DO
== END | disposition home or self-care (01) ==
LOC: RADMAMWWP 12:56
PROVIDERS: ATTEND Surgery
DX: R92.8 Other abnormal and inconclusive findings on diagnostic imaging of breast (principal); Z78.0 Asymptomatic menopausal state; Z80.3 Family history of malignant neoplasm of breast; Z90.721 Acquired absence of ovaries, unilateral
CPT/HCPCS: 77065; 76642; G0279; 77061

== ENCOUNTER → 2022-06-02 | Outpatient (CLI) | payer MEDICARE ==
[2022-06-02 12:14] VITALS: BP 137/88; PULSE 101; RESP 17; TEMP 98.3
--- NOTE | 2022-06-02 12:24 | P.PN ---
Progress Note - Text Progress Note Date: 06/02/22 Geovanna is a 66 year old white female seen in consultation for Dr. Cantrell regarding right nipple burning for several weeks. It wakes her up at night. It is not constant. It spreads to under her arm. She is not complaining of any pain in the left side. No nipple discharge. She is not complaining of any lumps masses or nodules of concern in either breast. She had a bilateral mammogram performed on which was benign BIRADS 2. She has not had any trauma the breast. She had a left breast nodule removed in the remote past. She had a repeat right breast mammogram and ultrasound on 05-27-22 . This was BIRAD 3 showing an anechoic lesion retroareolar to the right nipple measuring approximately 11 x 7 mm. Hypoechoic lesion at 11:00 3 cm from the nipple was noted which measured 4 x 5 mm. This was felt to be probable benign and a repeat diagnostic breast ultrasound in 6 months was recommended. She presented today for results of her most recent mammogram and ultrasound. Nothing of concern was noted on the studies. Therefore a repeat breast exam was not performed as this had just been done on [id number]. The burning in the right breast has decreased. And she is not complaining of any lumps masses or nodules of concern. Plan: Right breast ultrasound in 6 months Bilateral mammogram in January 2023 Patient will follow up after right breast ultrasound in 6 months in follow-up or sooner any questions or concerns Cc: Dr. Cantrell
== END | disposition home or self-care (01) ==
LOC: WWCWWP 11:49
PROVIDERS: ATTEND Surgery
DX: Z53.9 Procedure and treatment not carried out, unspecified reason (principal)

== ENCOUNTER → 2022-10-19 | Outpatient (CLI) | payer MEDICARE ==
[2022-10-19 18:01] LABS: HCT 41.2 % (37.2-46.3); HGB 12.9 g/dL (12.0-15.0); MCH 28.9 pg (27.0-32.0); MCHC 31.3 g/dL (32.0-37.0); MCV 92.4 fL (80.0-97.0); Mean Platelet Volume 10.8 fL (9.5-12.2); NRBC Per 100 WBC 0 /100 WBCS (0.0-0.0); Platelet Count 204 X 10*3/uL (140-440); RBC 4.46 X 10*6/uL (4.10-5.20); RDW 12.9 % (11.5-14.5); WBC 7.63 X 10*3/uL (4.50-10.00)
[2022-10-19 18:38] LABS: African American GFR (CKD) 95.8 (60.0-200.0); Anion Gap 8.8 mmol/L (10.00-18.00); Blood Urea Nitrogen 17.4 mg/dL (9.0-27.0); Non-African American GFR(CKD) 82.7 (60.0-200.0); Potassium 4.4 mmol/L (3.5-5.5)
== END | disposition home or self-care (01) ==
LOC: LABPAT 11:32
PROVIDERS: ATTEND Internal Medicine Clinical Cardiac Electrophysiology
DX: Z01.812 Encounter for preprocedural laboratory examination (principal)
CPT/HCPCS: 80051; 82565; 84520; 85027

== ENCOUNTER 2022-11-01 07:20 | Day surgery (SDC) | payer MEDICARE ==
[2022-10-27 11:53] VITALS: BMI 31.3
[~2022-11-01 07:20] MED LIST changes: -DEXAMETHASONE SOD PHOSPHATE 10 MG/ML 1 ML VIAL IV ONE; +DEXAMETHASONE SOD PHOSPHATE 4 MG/ML 1 ML VIAL IV ONE; -HEPARIN SODIUM,PORCINE 5,000 UNIT/ML 1 ML VIAL SQ ONE; +LIDOCAINE 1% (10MG/ML) FOR IV START INTRADERMA PRN; -LIDOCAINE 1% 20 ML VIAL (10MG/ML) FOR IV START INTRADERMA PRN; -MIDAZOLAM 2 MG/2 ML VIAL IV PRN; -Pre Op ABX Message 1 EACH MISC MISCELLANE ONE
[2022-11-01] MEDS: SODIUM CHLORIDE 0.9% 1,000 ML IV SCH (07:47)
[2022-11-01] MEDS ORDERED: LIDOCAINE 1% INJ 10MG/ML (20 ML MDV) ONE (09:36)
[2022-11-01] MEDS ORDERED: fentaNYL (PF) 50 MCG/ML 2 ML AMP ONE (09:38)
[2022-11-01] MEDS ORDERED: SUCCINYLCHOLINE CHLORIDE 200 MG/10 ML VIAL IV ONE (09:38)
[2022-11-01] MEDS ORDERED: PROPOFOL 10 MG/ML 20 ML VIAL IV ONE (09:38)
[2022-11-01] MEDS ORDERED: PHENYLEPHRINE-0.9% NACL SYG 1,000 MCG/10 ML SYRINGE ONE (09:38)
[2022-11-01] MEDS ORDERED: MIDAZOLAM 2 MG/2 ML VIAL ONE (09:38)
[2022-11-01] MEDS ORDERED: LIDOCAINE 2% INJ 20 MG/ML (2 ML VIAL) ONE (09:38)
[2022-11-01] MEDS ORDERED: ONDANSETRON 4 MG/2 ML VIAL ONE (09:38)
[2022-11-01] MEDS ORDERED: HEPARIN SODIUM,PORCINE 10,000 UNIT/ML 1 ML VIAL ONE (09:38)
--- NOTE | 2022-11-01 10:13 | P.HPCAR ---
History of Present Illness This is Dr. Hdz dictating an H/P on this patient The patient was interviewed and examined IMPRESSION / ASSESSMENT: Persistent atrial fibrillation, symptomatic with tiredness weakness and fatigue Cardio myopathy, dilated with class II CHF Mild CAD Hypertension Hypothyroidism on replacement therapy, normal TSH PLAN: Proceed with A. fib ablation. Patient is stable from a cardiovascular standpoint Continue ELIQUIS HPI Patient continues to have tiredness and fatigue No dizziness no syncope no chest pain No cough phlegm expectoration No fever chills Orthopnea PND ROS: No fever chills or rigors, no cough, phlegm or expectoration, no nausea, vomiting or diarrhea, no hematuria, dysuria, no musculoskeletal complaints, no strokes or seizures, no skin lesions. EXAMINATION: 136 104 mmHg pulse rate in the 90s afebrile 97.9F Breath sounds are clear no rhonchi no crackles Irregular heart sounds no murmurs Abdomen soft No lower extremity edema No orthopnea REVIEW OF LABS, ECG & MEDICAL DATA Enalapril carvedilol rosuvastatin levothyroxine and ELIQUIS Physical Exam Vitals: Vital Signs Temp Pulse Resp BP Pulse Ox 11/01/22 07:46 97.9 F 92 18 136/104 97 Intake and Output 10/31/22 11/01/22 11/01/22 22:59 06:59 14:59 Intake Total 20 Balance 20 Intake: IV 20 Other: Weight 92.6 kg Past Medical History Past Medical History: Atrial Fibrillation, Hypertension, Thyroid Disorder Additional Past Medical History / Comment(s): SEE DR HDZ'S H&P. IBS History of Any Multi-Drug Resistant Organisms: None Reported Past Surgical History: Appendectomy, Cholecystectomy, Hysterectomy Additional Past Surgical History / Comment(s): 10/13/16 colonoscopy-normal, R wrist cystectomy, APENDECTOMY 2017 Past Anesthesia/Blood Transfusion Reactions: Postoperative Nausea & Vomiting (PONV) Additional Past Anesthesia/Blood Transfusion Reaction / Comment(s): has hard time waking up with anesthesia. No hx blood transfusion Past Psychological History: Anxiety, Depression Smoking Status: Former smoker Past Alcohol Use History: Occasional Additional Past Alcohol Use History / Comment(s): quit smoking approx 2006, smoked for 3 yrs approx <1ppd Past Drug Use History: None Reported - Past Family History Mother Family Medical History: AFIB, Cancer Additional Family Medical History / Comment(s): lung CA. Mother was a smoker. Father Additional Family Medical History / Comment(s): alcoholism Sister(s) Family Medical History: AFIB, Cancer, Coronary Artery Disease (CAD) Additional Family Medical History / Comment(s): Breast CA 2016,. 2nd sister had CABG-2 vessel Brother(s) Family Medical History: AFIB Physical Examination Vital Signs Temp Pulse Resp BP Pulse Ox 11/01/22 07:46 97.9 F 92 18 136/104 97 Intake and Output 10/31/22 11/01/22 11/01/22 22:59 06:59 14:59 Intake Total 20 Balance 20 Intake: IV 20 Other: Weight 92.6 kg Results Current Medications Generic Name Dose Route Start Last Admin Trade Name Freq PRN Reason Stop Dose Admin Fentanyl Citrate 50 mcg 11/01/22 07:00 Fentanyl (Pf) 50 Mcg/Ml 2 Ml Amp IV 11/01/22 23:00 Q3M PRN Phase I - Pain Control Sodium Chloride 1,000 mls @ 20 mls/hr 11/01/22 05:53 11/01/22 07:47 Saline 0.9% IV 12/01/22 05:54 20 mls .Q24H APOLONIA Administration Lactated Ringer's 1,000 mls @ 20 mls/hr 11/01/22 05:53 Lactated Ringers IV 12/01/22 05:54 .Q24H APOLONIA Lidocaine HCl 0.1 ml 11/01/22 05:53 Lidocaine 1% (10mg/Ml) For Iv Start INTRADERMA 12/01/22 05:54 PER PROTOCOL PRN IV Start Intake and Output 10/31/22 11/01/22 11/01/22 22:59 06:59 14:59 Intake Total 20 Balance 20 Intake: IV 20 Other: Weight 92.6 kg Patient Weight 11/02/22 06:59 Weight 92.6 kg
[2022-11-01] MEDS ORDERED: LIDOCAINE 1% INJ 10MG/ML (20 ML MDV) SQ ONE (10:22)
[2022-11-01] MEDS ORDERED: HEPARIN SOD,PORK IN 0.45% NACL 25,000 UNIT in 0.45% NACL 1 250ML.BAG IV ONE (10:24)
[2022-11-01] MEDS ORDERED: IOPAMIDOL-370 100ML BTL INJ ONE (12:29)
[2022-11-01] MEDS ORDERED: ACETAMINOPHEN IV (For NPO) 1,000 MG in EMPTY BAG 1 BAG IVPB ONE (12:56)
[2022-11-01] MEDS ORDERED: ACETAMINOPHEN TAB 325 MG TAB PO PRN (12:56)
--- NOTE | 2022-11-01 13:02 | P.EPPROC ---
- EP Procedure Note Electrophysiology Procedure Note: PROCEDURE A. fib ablation with PVI, left atrial roof ablation and left atrial septal ablation DIAGNOSIS Persistent Atrial fibrillation, symptomatic, refractory to therapy, associated with cardiomyopathy RESULT No left atrial appendage mass seen on intracardiac echo, prominent pericardial stripe posteriorly Successful A. fib ablation/pulmonary vein isolation of all veins using cryo- ablation Complete entrance block in all 4 veins confirmed Successful left atrial roof ablation with organization. Atrial tachycardia during the roof ablation Left atrial septal ablation No evidence for phrenic nerve injury Esophageal deflection NO Electrical cardioversion of atrial tachycardia with concentric activation, cycle length 270 ms, with a synchronized shock across the chest YES Successful oriental orthodox of sinus rhythm PROCEDURE DETAILS Written informed consent prior to procedure. Patient brought to the EP lab. General anesthesia given. Heparin administered. A city maintained above 300 seconds Both groins prepped and draped per protocol and venous sheaths placed. Esophagus intubated, circa catheter for temperature monitoring an endoscope for possible esophageal deflection. Phrenic nerve monitoring performed. Esophageal temperature monitoring perform ed. Esophageal deflection performed if circa catheter overlapping with the balloon or circa temperature less than 27.5C Intracardiac echocardiography performed. Pericardium evaluated. Left atrial appendage evaluated. Left atrium evaluated along with pulmonary veins Transseptal catheterization performed under fluoroscopic guidance and intracardiac echo guidance Cryoablation sheath exchanged, balloon catheter along with achieve catheter placed in the left atrium. Pulmonary veins isolated in the following sequence: Left superior pulmonary vein followed by left inferior pulmonary vein, followed by right inferior pulmonary vein and lastly right superior pulmonary vein. Phrenic nerve stimulation along with capture thresholds within the SVC and right superior pulmonary vein to identify the phrenic nerve proximity to the cryo- balloon. Pulmonary veins isolated and confirmed with entrance and exit block. Phrenic nerve integrity confirmed at the end of the procedure Ablation of the left atrial roof performed with sequential lesions from the left superior to the right superior pulmonary veins. Ablation of the electrograms confirmed. During left atrial roof ablation, atrial fibrillation organized than atrial tachycardia Ablation of the left atrial septum performed with cannulation of the superior branch of the right inferior or the inferior branch of the right superior vein to achieve ablation of the posterior septum of the left atrium. Ablation of electrograms confirmed. Successful septal ablation performed Electrical cardioversion for residual atrial tachycardia performed for persistence of atrial fibrillation despite successful ablation. Diagnostic catheters for the high right atrium, His bundle, coronary sinus placed. LA and RA pressures recorded RA pressure: 15/9/12 LA pressure: 09/03/12 Diagnostic EP study with coronary sinus pacing and recording after successful electrical cardioversion Baseline measurements: RI interval 213 ms, QRS 85 ms and QT 397 ms HV interval 50 ms Venous sheaths were removed and hemostasis assured with a closure device. Patient extubated and transferred to recovery PROCEDURES PERFORMED Diagnostic EP study CS pacing and recording Left and right transseptal catheterization Catheter the mapping of the tachycardia Intracardiac echocardiography Pulmonary vein isolation with transseptal and comprehensive EPS, 62027 Left atrial roof line, +90053 Linear ablation, septum of left atrium, +60049 Electrical cardioversion with a synchronized shock across the chest [id number]
--- NOTE | 2022-11-01 13:06 | P.PRLE ---
RE: Geovanna Craven Dear Lynne Austin underwent successful A. fib ablation with isolation of the pulmonary veins, left ventricular roof ablation and left atrial septal ablation. She will continue on her current myopathy medications and ELIQUIS in follow-up with you and Dr. Shore Thank you for entrusting me with the care of the patient Warm regards Sincerely Amilcar Hdz
[2022-11-01 13:57] LABS: Glucose,Whole Blood 118 mg/dL (70-110)
[2022-11-01] MEDS: LACTATED RINGERS 1,000 ML IV SCH (14:39)
[2022-11-01] MEDS: carvediloL 12.5 MG TAB PO SCH (17:46)
[2022-11-01] MEDS ORDERED: VENLAFAXINE HCL ER 75 MG CAP PO SCH (21:00)
[2022-11-01] MEDS ORDERED: ATORVASTATIN 20 MG TAB PO SCH (21:00)
[2022-11-01] MEDS: lisinopriL 20 MG TAB PO SCH (21:57)
[2022-11-01] MEDS: APIXABAN 5 MG TAB PO SCH (21:57)
[2022-11-02 02:48] VITALS: TEMP 98.3
[2022-11-02] MEDS: LACTATED RINGERS 1,000 ML IV SCH (05:22)
[2022-11-02] MEDS: SODIUM CHLORIDE 0.9% 1,000 ML IV SCH (05:22)
[2022-11-02] MEDS: carvediloL 12.5 MG TAB PO SCH (05:43)
[2022-11-02] MEDS ORDERED: LEVOTHYROXINE 50 MCG TAB PO SCH (06:30)
[2022-11-02 06:36] VITALS: BP 105/69; PULSE 76; RESP 17
[2022-11-02] MEDS: APIXABAN 5 MG TAB PO SCH (08:31)
[2022-11-02] MEDS: lisinopriL 20 MG TAB PO SCH (08:31)
[2022-11-02] MEDS ORDERED: COLCHICINE 0.6 MG EACH PO ONE (08:38)
--- NOTE | 2022-11-02 11:10 | P.DS ---
Providers Attending physician: Amilcar Hdz Primary care physician: [facility] Course: This is a 67-year-old female who underwent atrial fibrillation ablation with Dr. Hdz. Patient is maintaining sinus mechanism this morning. She complains of some chest soreness this morning. Denies any shortness of breath. Vital signs are stable. Patient instructed to resume all her cardiac medications. She was discharged home today with one-week of colchicine. She was deemed stable for discharge home today by [facility]. Discharge diagnosis #1 persistent atrial fibrillation, status post ablation Nurse practitioner note has been reviewed by physician. Signing provider agrees with the documented findings, assessment, and plan of care. Plan - Discharge Summary Discharge Rx Participant: No New Discharge Prescriptions: New Colchicine 0.6 mg PO DAILY #7 tablet Continue Hyoscyamine Sulfate [Levsin] 0.125 mg PO HS Levothyroxine Sodium [Synthroid] 50 mcg PO DAILY Rosuvastatin Calcium 10 mg PO HS Venlafaxine HCl [Effexor XR] 225 mg PO HS Hyoscyamine Sulfate [Levsin] 0.1252 mg PO TID PRN PRN Reason: CRAMPING ramipriL 10 mg PO BID carvediloL 12.5 mg PO BID Cholecalciferol [Vitamin D3 (25 Mcg = 1000 Iu)] 50 mcg PO HS Apixaban [Eliquis] 5 mg PO BID rOPINIRole HCL [Requip] 0.5 mg PO HS Magnesium Oxide [Magnesium] 500 mg PO HS Discharge Medication List Hyoscyamine Sulfate [Levsin] 0.125 mg PO HS 10/10/16 [History] Levothyroxine Sodium [Synthroid] 50 mcg PO DAILY 10/27/16 [History] Apixaban [Eliquis] 5 mg PO BID 09/06/22 [History] Cholecalciferol [Vitamin D3 (25 Mcg = 1000 Iu)] 50 mcg PO HS 09/06/22 [History] Magnesium Oxide [Magnesium] 500 mg PO HS 09/06/22 [History] Rosuvastatin Calcium 10 mg PO HS 09/06/22 [History] rOPINIRole HCL [Requip] 0.5 mg PO HS 09/06/22 [History] Hyoscyamine Sulfate [Levsin] 0.1252 mg PO TID PRN 09/13/22 [History] Venlafaxine HCl [Effexor XR] 225 mg PO HS 09/13/22 [History] ramipriL 10 mg PO BID 09/13/22 [History] carvediloL 12.5 mg PO BID 10/27/22 [History] Colchicine 0.6 mg PO DAILY #7 tablet 11/02/22 [Rx] Follow up Appointment(s)/Referral(s): Amilcar Hdz MD [STAFF PHYSICIAN] - 11/10/22 11:45 am
== END 2022-11-02 11:58 | disposition home or self-care (01) ==
LOC: CATHEP 07:20 → 6NMEDSUR 12:42 → CATHEP 11-02 11:58
PROVIDERS: ATTEND Internal Medicine Clinical Cardiac Electrophysiology
DX: I48.19 Other persistent atrial fibrillation (principal); I42.9 Cardiomyopathy, unspecified; I11.0 Hypertensive heart disease with heart failure; I50.9 Heart failure, unspecified; I25.10 Atherosclerotic heart disease of native coronary artery without angina pectoris; E03.9 Hypothyroidism, unspecified; F41.9 Anxiety disorder, unspecified; F32.A Depression, unspecified; Z79.01 Long term (current) use of anticoagulants; Z87.891 Personal history of nicotine dependence; F10.20 Alcohol dependence, uncomplicated; Z80.1 Family history of malignant neoplasm of trachea, bronchus and lung; Z82.49 Family history of ischemic heart disease and other diseases of the circulatory system; Z80.3 Family history of malignant neoplasm of breast; Z79.899 Other long term (current) drug therapy
CPT/HCPCS: 93656; 93657; C1894; C1769 ×4; C1760; C1730 ×2; C1759; C1893; C1733; C1766; J2250; J0330; J1644 ×2; J2405; J2001 ×2; J3010; J0131; J2370; J2704; Q9967; 92960

== ENCOUNTER → 2022-11-25 | Outpatient (CLI) | payer MEDICARE ==
[2022-11-25 16:06] LABS: African American GFR (CKD) 93.7 (60.0-200.0); Anion Gap 10.1 mmol/L (10.00-18.00); BUN/Creat Ratio 19.95 Ratio (12.00-20.00); Blood Urea Nitrogen 15.3 mg/dL (9.0-27.0); Calcium 9.5 mg/dL (8.7-10.3); Carbon Dioxide 25.9 mmol/L (20.0-27.5); Magnesium 2.4 mg/dL (1.5-2.4); Non-African American GFR(CKD) 80.8 (60.0-200.0); Potassium 4.8 mmol/L (3.5-5.5)
== END | disposition home or self-care (01) ==
LOC: LABWHC1 09:34
PROVIDERS: ATTEND Nurse Practitioner Adult Health
DX: I10 Essential (primary) hypertension (principal)
CPT/HCPCS: 36415; 80048; 83735

== ENCOUNTER → 2022-12-01 | Outpatient (CLI) | payer MEDICARE ==
[2022-12-01 14:07] VITALS: BP 148/85; PULSE 69; RESP 18; TEMP 98
--- NOTE | 2022-12-01 14:30 | P.PN ---
Subjective Progress Note Date: 12/01/22 Principal diagnosis: fibrocystic breast changes Geovanna is a 67-year-old white female initially seen in consultation for Dr. Cantrell regarding right nipple burning. She was not complaining of any pain on the left side. She is not complaining of any nipple discharge. She did not complain of any lumps masses or nodules of concern in either breast. She had a bilateral mammogram performed in 720 222 which was BIRADS 2. She had had a left breast nodule removed in the remote past. The patient subsequently [place] [address] which was BIRADS 3. She was recommended to have repeat right breast evaluation in 6 months. This was performed on 55. This revealed a stable circumscribed anechoic lesion in the right breast at 11:00. It was felt that this may represent a simple cyst. It also showed a stable heterogeneous ovoid mass in the right nipple area measuring 1.4 x 1.5 cm. This may represent a complicated cyst. The recommendation was for bilateral mammogram in 6 months with a repeat right breast ultrasound. Patient has decreased her caffeine intake and the initial burning which she felt in the right nipple area has subsided. He is not complaining of any lumps masses or nodules of concern in either breast. Candace risk evaluation 5 year 3.8%; we have discussed chemoprophylaxis and the patient has declined at this time NCI lifetime risk 13.2% Caffeine: 1 cup/day;now drinks < 1 cup/day nicotine: none; 2004 stopped used to smoke 1 pack/week chocolate: weekly BCP: 10 years stopped in 1995 Family History: mother: lung cancer sister: breast cancer at 66 paternal aunt: breast cancer Hormonal history: Menarche: 14 , breast fed: yes, age at first : 25 menopause: Abdominal hysterectomy at 41 secondary to bleeding HRT: stopped at 51 Surgical History: total abdominal hysterectomy gallbladder appy cyst right wrist left breaset biopsy Medical History: HTN depression IBS restless leg hypothyroid atrial fib on eliquis cardiac ablation done Social history: Nicotine: Smoked 1 pack per week for approximately 3 years stopped in 2004 Alcohol: Occasional Drugs: none - Constitutional Constitutional: Reports fever, Reports sweats - EENT Eyes: denies blurred vision, denies pain Ears, nose, mouth and throat: Denies headache, Denies sore throat - Breasts Breasts: bilateral: as per HPI - Cardiovascular Cardiovascular: Denies chest pain, Denies shortness of breath; atrial fibrillation on Eliquis was has had cardiac ablation - Respiratory Respiratory: Denies cough - Gastrointestinal Gastrointestinal: Denies abdominal pain, Denies diarrhea, Denies nausea, Denies vomiting - Genitourinary (Female) Genitourinary: Denies dysuria, Denies hematuria - Menstruation Menstruation: Reports post hysterectomy - Musculoskeletal Comment: right shoulder - Integumentary Integumentary: Denies pruritus, Denies rash - Neurological Neurological: Reports numbness, Denies weakness - Psychiatric Psychiatric: Reports anxiety, Reports depression - Endocrine Endocrine: Denies fatigue, Denies weight change - Hematologic/Lymphatic Comment: none - Allergic/Immunologic Allergic/Immunologic: Reports as per HPI Past Medical History Past Medical History: Hypertension, Thyroid Disorder Additional Past Medical History / Comment(s): States "heart rate speeds up at times", IBS, hypothyroid. CYST RT BREAST. History of Any Multi-Drug Resistant Organisms: None Reported Past Surgical History: Appendectomy, Cholecystectomy, Hysterectomy Additional Past Surgical History / Comment(s): 10/13/16 colonoscopy-normal, R wrist cystectomy, APENDECTOMY 2017 Past Anesthesia/Blood Transfusion Reactions: Postoperative Nausea & Vomiting (PONV) Additional Past Anesthesia/Blood Transfusion Reaction / Comment(s): has hard time waking up with anesthesia. No hx blood transfusion Past Psychological History: Anxiety, Depression Additional Psychological History / Comment(s): Pt resides with her spouse. She is independent. Smoking Status: Former smoker Past Alcohol Use History: Occasional Additional Past Alcohol Use History / Comment(s): quit smoking approx 2006, smoked for 3 yrs approx <1ppd Past Drug Use History: None Reported - Past Family History Mother Family Medical History: Cancer Additional Family Medical History / Comment(s): lung CA. Mother was a smoker. Father Additional Family Medical History / Comment(s): alcoholism Sister(s) Family Medical History: Cancer Additional Family Medical History / Comment(s): Breast CA 2016 Medications and Allergies Home Medications Medication Instructions Recorded Confirmed Type Ergocalciferol [Vitamin D2 50,000 unit PO MO 10/10/16 05/06/22 History (DRISDOL)] Hyoscyamine Sulfate [Levsin] 0.125 mg PO QID PRN 10/10/16 05/06/22 History Venlafaxine HCl [Effexor XR] 150 mg PO HS 10/10/16 05/06/22 History ramipriL [Altace] 10 mg PO BID 10/10/16 05/06/22 History Levothyroxine Sodium [Synthroid] 50 mcg PO QAM 10/27/16 05/06/22 History Allergies Allergy/AdvReac Type Severity Reaction Status Date / Time latex Allergy Rash/Hives Verified 05/06/22 14:30 Sulfa (Sulfonamide AdvReac Nausea & Verified 05/06/22 14:30 Antibiotics) Vomiting Objective - Vital Signs Vital signs: Vital Signs Temp 98.0 F 12/01/22 14:03 Pulse 69 12/01/22 14:03 Resp 18 12/01/22 14:03 BP 148/85 12/01/22 14:03 Pulse Ox 97 12/01/22 14:03 FiO2 Intake & Output 11/30/22 12/01/22 12/01/22 18:59 06:59 18:59 Weight 90.718 kg - Constitutional General appearance: Present: cooperative - EENT Eyes: Present: edentulous ENT: Present: hearing grossly normal - Neck Neck: Present: normal ROM - Respiratory Respiratory: bilateral: CTA - Cardiovascular Rhythm: regular Heart sounds: normal: S1, S2 - Gastrointestinal General gastrointestinal: Present: soft - Integumentary Integumentary: Present: normal turgor - Musculoskeletal Musculoskeletal: Present: gait normal - Psychiatric Psychiatric: Present: A&O x's 3, appropriate affect, intact judgment & insight - Additional findings Additional findings: Breast Exam: BRA: 40D inspection: Bilateral grade 2 ptosis Palpation: Right breast: Multiple positional exam fibrocystic changes no dominant masses or not his of concern, particularl attention to the area behind the nipple areolar complex does not reveal any specific lesion of concern Right axilla: No adenopathy of concern Left breast: Multi-positional exam fibrocystic changes no dominant masses or nodules of concern Left axilla: No adenopathy of concern Assessment and Plan Assessment: Impression: bilateral fibrocystic breast changes right breast ultrasound 11-25-22 BIRADS 3 Most recent bilateral mammogram [id number] which led to the recent right breast ultrasound Plan: Bilateral mammogram and right breast ultrasound in May 2023 with a physician exam at that time Patient to follow up sooner any questions or concerns Cc: Dr. Gonsalez
== END ==
LOC: WWCWWP 13:34
PROVIDERS: ATTEND Surgery
DX: N60.11 Diffuse cystic mastopathy of right breast (principal); N60.12 Diffuse cystic mastopathy of left breast; I10 Essential (primary) hypertension; E03.9 Hypothyroidism, unspecified; Z79.890 Hormone replacement therapy; Z91.040 Latex allergy status; Z88.2 Allergy status to sulfonamides; G25.81 Restless legs syndrome; F32.A Depression, unspecified; I48.91 Unspecified atrial fibrillation; Z79.01 Long term (current) use of anticoagulants; K58.9 Irritable bowel syndrome, unspecified; Z87.891 Personal history of nicotine dependence; Z79.899 Other long term (current) drug therapy

== ENCOUNTER → 2023-05-29 | Outpatient (CLI) | payer MEDICARE ==
--- NOTE | 2023-05-29 08:25 | USB ---
Reason for Exam: Follow-up at short interval from prior study. Patient History: Menarche at age 14. First Full-Term at age 25. Left ovary removed at age 41. Right ovary removed at age 41. Hysterectomy at age 41. Postmenopausal. Patient has history of breast feeding. Estrogen for 10 years from age 41 until age 51. Progesterone for 10 years from age 41 until age 51. Hormonal Contraceptives for 10 years from age 26 until age 36. 2018, Benign Excisional Biopsy on the right side. Paternal aunt had breast cancer, age 60. Sister had breast cancer, age 66. Risk Values: Candace 5 year model risk: 3.8%. NCI Lifetime model risk: 13.2%. Technique: Method: Targeted. Prior Study Comparison: 02/10/2021 Bilateral Screening Mammogram, [facility]. 02/11/2022 Bilateral MG screening mammo w CAD, [facility]. 05/27/2022 Right MG 3D diag mammo w/cad RT, [facility]. Findings: The upper outer quadrant of the right breast, the axilla of the right breast and the retroareolar of the right breast were scanned. Posterior to the nipple is a hypoechoic 0.6 x 0.6 x 0.9 cm area. This was present previously and contains some echoes. This is smaller than prior study. This is not a simple cyst in follow-up is recommended. At the 11:00 position there is a 0.3 x 0.5 x 0.3 cm hypoechoic area with through-transmission. This is located 3 cm from the nipple. This area was present previously and is smaller than comparison. Previous punctate cyst is not identified on the current exam. Overall Assessment: Probably benign, BI-RAD 3 Management: Diagnostic Breast Ultrasound of the right breast in 6 months. Screening Mammogram of both breasts in 1 year. A clinical breast exam by your physician is recommended on an annual basis and results should be correlated with mammographic findings. This exam should not preclude additional follow-up of suspicious palpable abnormalities. Results were given to the patient verbally at the time of exam. Electronically signed and approved by: Usama Simental D.O. Radiologis
== END | disposition home or self-care (01) ==
LOC: RADMAMWWP 07:34
PROVIDERS: ATTEND Surgery
DX: N63.11 Unspecified lump in the right breast, upper outer quadrant (principal); R92.8 Other abnormal and inconclusive findings on diagnostic imaging of breast; Z78.0 Asymptomatic menopausal state; Z80.3 Family history of malignant neoplasm of breast
CPT/HCPCS: 77066; 76642; G0279; 77062

== ENCOUNTER → 2023-05-29 | Outpatient (CLI) | payer MEDICARE ==
--- NOTE | 2023-05-29 17:50 | BD ---
EXAMINATION TYPE: Axial Bone Density DATE OF EXAM: 05/29/2023 CLINICAL HISTORY: 67 years old Female. ICD-10 CODE: Z13.820 SCREEN FOR OSTEOPOROSIS Height: 67" Weight: 213lbs FRAX RISK QUESTIONS: Alcohol (3 or more units per day): No Family History (Parent hip fracture): Yes, Mother Glucocorticoids (More than 3mos): No (Ex: prednisone, prednisolone, methylprednisolone, dexamethasone, and hydrocortisone). History of Fracture in Adulthood: No Secondary Osteoporosis: 1. Type 1 Diabetes: No 2. Hyperthyroidism: No 3. Menopause before 45: Yes 4. Malnutrition: No 5. Chronic liver disease: No Rheumatoid Arthritis: No Current Tobacco Use: No RISK FACTORS HISTORY OF: Hip Fracture (Right/Left): No Spine Fracture: No History of Wrist Fracture: No Surgery to Spine/Hip(right/left)/Wrist (right/left): Ganglion cyst removal, right wrist Family History of Osteoporosis: Yes, sister Active: No Diet low in dairy products/other sources of calcium: No Postmenopausal woman: Yes Lost more than 2 inches in height since high school: No Frequent falls: No Poor Health: No Hyperparathyroidism: No Adrenal Insufficiency: No MEDICATIONS: Prednisone or other steroids: No Thyroid Medications: Yes Which medication: Levothyroxine How Long: About 15 years Osteoporosis Medications: No Additional Medications: Blood pressure meds, vitamin D supplement, anti-anxiety/depression meds, levo thyroxine, blood thinner Eliquis, Additional History: None EXAM MEASUREMENTS: Bone mineral densitometry was performed using the [employer] System. Bone mineral density as measured about the Lumbar spine is: ----- L1-L4(G/cm2): 1.434 T Score Values are as follows: ----- L1: 0.1 ----- L2: 0.9 ----- L3: 2.6 ----- L4: 3.3 ----- L1-L4: 2.1 Z Score Values are as follows: ----- L1: 0.6 ----- L2: 1.5 ----- L3: 3.1 ----- L4: 3.9 ----- L1-L4: 2.7 Baseline @MPH Bone mineral density about the R hip (g/cm2): 1.060 Bone mineral density about the L hip (g/cm2): 1.062 T Score values are as follows: -----R Neck: -0.5 -----L Neck: -0.6 -----R Total: 0.4 -----L Total: 0.4 Z Score values are as follows: -----R Neck: 0.3 -----L Neck: 0.2 -----R Total: 0.9 -----L Total: 1.0 Baseline @MPH FRAX%s: The graph provided illustrates a 13.3% chance for a major osteoporotic fx and a 0.6% chance f or the hips probability for fx in 10 years time. IMPRESSION: Normal (Values between +1 and -1 indicate normal bone mass). Consider repeating this study in 5 year s or sooner if there is some new clinical indication. NOTE: T-SCORE=SD OF THE YOUNG ADULT MEAN.
== END | disposition home or self-care (01) ==
LOC: RADBDWWP 07:36
PROVIDERS: ATTEND Family Medicine
DX: Z13.820 Encounter for screening for osteoporosis (principal); Z78.0 Asymptomatic menopausal state
CPT/HCPCS: 77080

== ENCOUNTER → 2023-06-02 | Outpatient (CLI) | payer MEDICARE ==
[2023-06-02 12:29] VITALS: BP 143/89; PULSE 70; RESP 18; TEMP 98.1
--- NOTE | 2023-06-02 12:33 | P.PN ---
Subjective Progress Note Date: 06/02/23 Principal diagnosis: fibrocystic breast disease fibrocystic breast changes Geovanna is a 67-year-old white female initially seen in consultation for Dr. Cantrell regarding right nipple burning. She was not complaining of any pain on the left side. She is not complaining of any nipple discharge. She did not complain of any lumps masses or nodules of concern in either breast. [place] [address] which was BIRADS 2. She had had a left breast nodule removed in the remote past. The patient subsequently had a repeat right breast mammogram and ultrasound in which was BIRADS 3. She was recommended to have repeat right breast evaluation in 6 months. This was performed on 55. This revealed a stable circumscribed anechoic lesion in the right breast at 11:00. It was felt that this may represent a simple cyst. It also showed a stable heterogeneous ovoid mass in the right nipple area measuring 1.4 x 1.5 cm. This may represent a complicated cyst. The recommendation was for bilateral mammogram in 6 months with a repeat right breast ultrasound. 06-02-23 Is not complaining of any new lumps masses or nodules of concern in either breast. She no longer has burning behind the right nipple complex. She did have a ultrasound of the right breast on which revealed posterior to the nipple is 0.6 x 0.9 cm area. This was present previously and contains some echoes. This is smaller than prior study. This is not a simple cyst and follow-up is recommended. At the 11 o'clock position 0.3 x 0.5 cm area with through transmission. This was present previously and is smaller. This was felt to be probably benign BIRADS 3 and ultrasound of the right breast in 6 months was recommended with bilateral mammogram in 1 year. She also had a bilateral mammogram performed on the same date and it has not been read yet. She has decreased her caffiene intake and the pain behind the right nipple has stopped. Candace five-year risk 3.8%, lifetime risk 13.2% Patient has decreased her caffeine intake and the initial burning which she felt in the right nipple area has subsided. He is not complaining of any lumps masses or nodules of concern in either breast. Candace risk evaluation 5 year 3.8%; we have discussed chemoprophylaxis and the patient has declined at this time NCI lifetime risk 13.2% Caffeine: 1 cup/day;now drinks < 1 cup/day nicotine: none; 2004 stopped used to smoke 1 pack/week chocolate: weekly BCP: 10 years stopped in 1995 Family History: mother: lung cancer sister: breast cancer at 66 paternal aunt: breast cancer Hormonal history: Menarche: 14 , breast fed: yes, age at first : 25 menopause: Abdominal hysterectomy at 41 secondary to bleeding HRT: stopped at 51 Surgical History: total abdominal hysterectomy gallbladder appy cyst right wrist left breaset biopsy Medical History: HTN depression IBS restless leg hypothyroid atrial fib on eliquis cardiac ablation done Social history: Nicotine: Smoked 1 pack per week for approximately 3 years stopped in 2004 Alcohol: Occasional Drugs: none - Constitutional Constitutional: Reports fever, Reports sweats - EENT Eyes: denies blurred vision, denies pain Ears, nose, mouth and throat: Denies headache, Denies sore throat - Breasts Breasts: bilateral: as per HPI - Cardiovascular Cardiovascular: Denies chest pain, Denies shortness of breath; atrial fibrillation on Eliquis was has had cardiac ablation - Respiratory Respiratory: Denies cough - Gastrointestinal Gastrointestinal: Denies abdominal pain, Denies diarrhea, Denies nausea, Denies vomiting - Genitourinary (Female) Genitourinary: Denies dysuria, Denies hematuria - Menstruation Menstruation: Reports post hysterectomy - Musculoskeletal Comment: right shoulder - Integumentary Integumentary: Denies pruritus, Denies rash - Neurological Neurological: Reports numbness, Denies weakness - Psychiatric Psychiatric: Reports anxiety, Reports depression - Endocrine Endocrine: Denies fatigue, Denies weight change - Hematologic/Lymphatic Comment: none - Allergic/Immunologic Allergic/Immunologic: Reports as per HPI Past Medical History Past Medical History: Hypertension, Thyroid Disorder Additional Past Medical History / Comment(s): States "heart rate speeds up at times", IBS, hypothyroid. CYST RT BREAST. History of Any Multi-Drug Resistant Organisms: None Reported Past Surgical History: Appendectomy, Cholecystectomy, Hysterectomy Additional Past Surgical History / Comment(s): 10/13/16 colonoscopy-normal, R wrist cystectomy, APENDECTOMY 2017 Past Anesthesia/Blood Transfusion Reactions: Postoperative Nausea & Vomiting (PONV) Additional Past Anesthesia/Blood Transfusion Reaction / Comment(s): has hard time waking up with anesthesia. No hx blood transfusion Past Psychological History: Anxiety, Depression Additional Psychological History / Comment(s): Pt resides with her spouse. She is independent. Smoking Status: Former smoker Past Alcohol Use History: Occasional Additional Past Alcohol Use History / Comment(s): quit smoking approx 2006, smoked for 3 yrs approx <1ppd Past Drug Use History: None Reported - Past Family History Mother Family Medical History: Cancer Additional Family Medical History / Comment(s): lung CA. Mother was a smoker. Father Additional Family Medical History / Comment(s): alcoholism Sister(s) Family Medical History: Cancer Additional Family Medical History / Comment(s): Breast CA 2015 Medications and Allergies Home Medications Medication Instructions Recorded Confirmed Type Ergocalciferol [Vitamin D2 50,000 unit PO MO 10/10/16 05/06/22 History (DRISDOL)] Hyoscyamine Sulfate [Levsin] 0.125 mg PO QID PRN 10/10/16 05/06/22 History Venlafaxine HCl [Effexor XR] 150 mg PO HS 10/10/16 05/06/22 History ramipriL [Altace] 10 mg PO BID 10/10/16 05/06/22 History Levothyroxine Sodium [Synthroid] 50 mcg PO QAM 10/27/16 05/06/22 History Allergies Allergy/AdvReac Type Severity Reaction Status Date / Time latex Allergy Rash/Hives Verified 05/06/22 14:30 Sulfa (Sulfonamide AdvReac Nausea & Verified 05/06/22 14:30 Antibiotics) Vomiting Objective - Vital Signs Vital signs: Vital Signs Temp 98.1 F 06/02/23 12:10 Pulse 70 06/02/23 12:10 Resp 18 06/02/23 12:10 BP 143/89 06/02/23 12:10 Pulse Ox 100 06/02/23 12:10 FiO2 Intake & Output 06/01/23 06/02/23 06/02/23 18:59 06:59 18:59 Weight 95.708 kg - Constitutional General appearance: Present: cooperative - EENT Eyes: Present: EOMI ENT: Present: hearing grossly normal - Neck Neck: Present: normal ROM - Respiratory Respiratory: bilateral: CTA - Cardiovascular Rhythm: regular Heart sounds: normal: S1, S2 - Integumentary Integumentary: Present: normal turgor - Musculoskeletal Musculoskeletal: Present: gait normal - Psychiatric Psychiatric: Present: A&O x's 3, appropriate affect, intact judgment & insight - Additional findings Additional findings: Breast Exam: BRA: 40D inspection: Bilateral grade 2 ptosis Palpation: Right breast: Multi- positional exam fibrocystic changes no dominant masses or not his of concern, particularl attention to the area behind the nipple areolar complex does not reveal any specific lesion of concern Right axilla: No adenopathy of concern Left breast: Multi-positional exam fibrocystic changes no dominant masses or nodules of concern Left axilla: No adenopathy of concern Assessment and Plan Assessment: Impression: bilateral fibrocystic breast changes right breast ultrasound 04-28-23 BIRADS 3 Most recent bilateral mammogram 04-28-23 awaiting reading Plan: Right breast ultrasound 6 months with appointment at that time We [place] the [place] [id number] Patient to follow up sooner any questions or concerns Cc: Dr. Gonsalez Additional CC's: Jim Gonsalez
== END ==
LOC: WWCWWP 11:37
PROVIDERS: ATTEND Surgery
DX: N60.11 Diffuse cystic mastopathy of right breast (principal); N60.12 Diffuse cystic mastopathy of left breast; I10 Essential (primary) hypertension; E03.9 Hypothyroidism, unspecified; F41.9 Anxiety disorder, unspecified; K58.9 Irritable bowel syndrome, unspecified; F32.A Depression, unspecified; F17.200 Nicotine dependence, unspecified, uncomplicated; G25.81 Restless legs syndrome; Z80.3 Family history of malignant neoplasm of breast; Z91.040 Latex allergy status; Z88.2 Allergy status to sulfonamides; Z79.890 Hormone replacement therapy; Z79.899 Other long term (current) drug therapy; Z79.01 Long term (current) use of anticoagulants

== ENCOUNTER → 2023-11-28 | Outpatient (CLI) | payer MEDICARE ==
--- NOTE | 2023-11-28 10:05 | USB ---
Reason for Exam: Additional evaluation requested from abnormal screening. Patient History: Menarche at age 14. First Full-Term at age 25. Left ovary removed at age 41. Right ovary removed at age 41. Hysterectomy at age 41. Postmenopausal. Patient has history of breast feeding. Estrogen for 10 years from age 41 until age 51. Progesterone for 10 years from age 41 until age 51. Hormonal Contraceptives for 10 years from age 26 until age 36. 2018, Benign Excisional Biopsy on the right side. Paternal aunt had breast cancer, age 60. Sister had breast cancer, age 66. Risk Values: Candace 5 year model risk: 3.8%. NCI Lifetime model risk: 12.7%. Technique: Method: Targeted. Prior Study Comparison: 02/11/2022 Bilateral MG screening mammo w CAD, [facility]. 05/27/2022 Right MG 3D diag mammo w/cad RT, [facility]. 05/29/2023 Bilateral MG 3D diag mammo w/cad SUZY, [facility]. Findings: Targeted ultrasound upper outer right breast 9:00 to 12:00 including scanning of the subareolar region and axilla. At the 10:00 position, 3 cm from the nipple, there is a tiny 4 x 3 x 3 mm circumscribed isoechoic lesion too small to further characterize. However, on 11/25/2022, we note it had measured 6 mm. Findings suggest a tiny, debris-filled cyst. The previous subareolar finding has resolved. Six-month follow-up mammogram recommended. Overall Assessment: Probably benign, BI-RAD 3 Management: Diagnostic Mammogram of both breasts in 6 months. Total one-year follow-up right breast and annual exam of the left breast A clinical breast exam by your physician is recommended on an annual basis and results should be correlated with mammographic findings. This exam should not preclude additional follow-up of suspicious palpable abnormalities. Results were given to the patient verbally at the time of exam. Note on Candace scores and lifetime risk: 1. A Candace score greater than 3% is considered moderate risk. If this is the case, consider specialist referral to assess eligibility for a risk reducing agent. 2. If overall lifetime risk for the development of breast cancer is 20% or higher, the patient may qualify for future screening with alternating mammogram and breast MRI. Electronically signed and approved by: Humphrey Jose M.D. Radiologist
== END | disposition home or self-care (01) ==
LOC: RADUSWWP 09:24
PROVIDERS: ATTEND Surgery
DX: R92.8 Other abnormal and inconclusive findings on diagnostic imaging of breast (principal); Z78.0 Asymptomatic menopausal state; Z80.3 Family history of malignant neoplasm of breast

== ENCOUNTER → 2023-12-01 | Outpatient (CLI) | payer MEDICARE ==
--- NOTE | 2023-12-01 15:02 | P.PN ---
Subjective Progress Note Date: 12/01/23 Principal diagnosis: fibrocystic breast Subjective Progress Note Date: 12-01-23 Principal diagnosis: 06-02-23 fibrocystic breast disease Geovanna is a 67-year-old white female initially seen in consultation for Dr. Cantrell regarding right nipple burning. She was not complaining of any pain on the left side. She is not complaining of any nipple discharge. She did not complain of any lumps masses or nodules of concern in either breast. She had a bilateral mammogram performed in which was BIRADS 2. She had had a left breast nodule removed in the remote past. The patient subsequently had a repeat right breast mammogram and ultrasound in which was BIRADS 3. She was recommended to have repeat right breast evaluation in 6 months. This was performed on 5522. This revealed a stable circumscribed anechoic lesion in the right breast at 11:00. It was felt that this may represent a simple cyst. It also showed a stable heterogeneous ovoid mass in the right nipple area measuring 1.4 x 1.5 cm. This may represent a complicated cyst. The recommendation was for bilateral mammogram in 6 months with a repeat right breast ultrasound. Is not complaining of any new lumps masses or nodules of concern in either breast. She no longer has burning behind the right nipple complex. She did have a ultrasound of the right breast on which revealed posterior to the nipple is 0.6 x 0.9 cm area. This was present previously and contains some echoes. This is smaller than prior study. This is not a simple cyst and follow-up is recommended. At the 11 o'clock position 0.3 x 0.5 cm area with through transmission. This was present previously and is smaller. This was felt to be probably benign BIRADS 3 and ultrasound of the right breast in 6 months was recommended with bilateral mammogram in 1 year. She also had a bilateral mammogram performed on the same date and it has not been read yet. She has decreased her caffiene intake and the pain behind the right nipple has stopped. Candace five-year risk 3.8%, lifetime risk 13.2% Patient has decreased her caffeine intake and the initial burning which she felt in the right nipple area has subsided. She is not complaining of any lumps masses or nodules of concern in either breast. 12-01-23 right breast ultrasound 11-28-23 BIRAD 3 repeat bilateral mammogram in 6 months Complaining of any new lumps masses or nodules of concern in either breast Candace risk evaluation 5 year 3.8%; we have discussed chemoprophylaxis and the patient has declined at this time NCI lifetime risk 12.7 Caffeine: 1 cup/day;now drinks < 1 cup/day; the patient has stopped her caffeine July 2023 nicotine: none; 2004 stopped used to smoke 1 pack/week chocolate: weekly BCP: 10 years stopped in 1995 Family History: mother: lung cancer sister: breast cancer at 66 paternal aunt: breast cancer Hormonal history: Menarche: 14 , breast fed: yes, age at first : 25 menopause: Abdominal hysterectomy at 41 secondary to bleeding HRT: stopped at 51 Surgical History: total abdominal hysterectomy gallbladder appy cyst right wrist left breast biopsy Medical History: HTN depression IBS restless leg hypothyroid atrial fib on eliquis cardiac ablation done Social history: Nicotine: Smoked 1 pack per week for approximately 3 years stopped in 2004 Alcohol: Occasional Drugs: none - Constitutional Constitutional: Reports fever, Reports sweats - EENT Eyes: denies blurred vision, denies pain Ears, nose, mouth and throat: Denies headache, Denies sore throat - Breasts Breasts: bilateral: as per HPI - Cardiovascular Cardiovascular: Denies chest pain, Denies shortness of breath; atrial fibrillation on Eliquis was has had cardiac ablation - Respiratory Respiratory: Denies cough - Gastrointestinal Gastrointestinal: Denies abdominal pain, Denies diarrhea, Denies nausea, Denies vomiting - Genitourinary (Female) Genitourinary: Denies dysuria, Denies hematuria - Menstruation Menstruation: Reports post hysterectomy - Musculoskeletal Comment: right shoulder - Integumentary Integumentary: Denies pruritus, Denies rash - Neurological Neurological: Reports numbness, Denies weakness - Psychiatric Psychiatric: Reports anxiety, Reports depression - Endocrine Endocrine: Denies fatigue, Denies weight change - Hematologic/Lymphatic Comment: none - Allergic/Immunologic Allergic/Immunologic: Reports as per HPI Past Medical History Past Medical History: Hypertension, Thyroid Disorder Additional Past Medical History / Comment(s): States "heart rate speeds up at times", IBS, hypothyroid. CYST RT BREAST. History of Any Multi-Drug Resistant Organisms: None Reported Past Surgical History: Appendectomy, Cholecystectomy, Hysterectomy Additional Past Surgical History / Comment(s): 10/13/16 colonoscopy-normal, R wrist cystectomy, APENDECTOMY 2017 Past Anesthesia/Blood Transfusion Reactions: Postoperative Nausea & Vomiting (PONV) Additional Past Anesthesia/Blood Transfusion Reaction / Comment(s): has hard time waking up with anesthesia. No hx blood transfusion Past Psychological History: Anxiety, Depression Additional Psychological History / Comment(s): Pt resides with her spouse. She is independent. Smoking Status: Former smoker Past Alcohol Use History: Occasional Additional Past Alcohol Use History / Comment(s): quit smoking approx 2006, smoked for 3 yrs approx <1ppd Past Drug Use History: None Reported - Past Family History Mother Family Medical History: Cancer Additional Family Medical History / Comment(s): lung CA. Mother was a smoker. Father Additional Family Medical History / Comment(s): alcoholism Sister(s) Family Medical History: Cancer Additional Family Medical History / Comment(s): Breast CA 2015 Medications and Allergies Home Medications Medication Instructions Recorded Confirmed Type Ergocalciferol [Vitamin D2 50,000 unit PO MO 10/10/16 05/06/22 History (DRISDOL)] Hyoscyamine Sulfate [Levsin] 0.125 mg PO QID PRN 10/10/16 05/06/22 History Venlafaxine HCl [Effexor XR] 150 mg PO HS 10/10/16 05/06/22 History ramipriL [Altace] 10 mg PO BID 10/10/16 05/06/22 History Levothyroxine Sodium [Synthroid] 50 mcg PO QAM 10/27/16 05/06/22 History Allergies Allergy/AdvReac Type Severity Reaction Status Date / Time latex Allergy Rash/Hives Verified 05/06/22 14:30 Sulfa (Sulfonamide AdvReac Nausea & Verified 05/06/22 14:30 Antibiotics) Vomiting Objective - Constitutional General appearance: Present: cooperative - EENT Eyes: Present: EOMI ENT: Present: hearing grossly normal - Neck Neck: Present: normal ROM - Respiratory Respiratory: bilateral: CTA - Cardiovascular Heart sounds: normal: S1, S2 - Gastrointestinal General gastrointestinal: Present: soft - Integumentary Integumentary: Present: normal turgor - Musculoskeletal Musculoskeletal: Present: gait normal - Psychiatric Psychiatric: Present: A&O x's 3, appropriate affect, intact judgment & insight - Additional findings Additional findings: Breast Exam: BRA: 40D inspection: Bilateral grade 2 ptosis Palpation: Right breast: Multi- positional exam fibrocystic changes no dominant masses or not his of concern, particular attention to the area behind the nipple areolar complex does not reveal any specific lesion of concern Right axilla: No adenopathy of concern Left breast: Multi-positional exam fibrocystic changes no dominant masses or nodules of concern Left axilla: No adenopathy of concern Assessment and Plan Assessment: Impression: bilateral fibrocystic breast changes right breast ultrasound 11-28-23 BIRADS 3 Most recent bilateral mammogram 04-28-23 lead to an ultrasound, BIRAD 3, repeated on 11-28-23 Plan: bilateral mammogram in 6 months, May 2024 Patient to follow up sooner any questions or concerns Cc: Dr. Gonsalez
[2023-12-01 15:09] VITALS: BP 144/85; PULSE 85; RESP 17; TEMP 98
== END ==
LOC: WWCWWP 14:23
PROVIDERS: ATTEND Surgery
DX: R92.8 Other abnormal and inconclusive findings on diagnostic imaging of breast (principal); N60.11 Diffuse cystic mastopathy of right breast; N60.12 Diffuse cystic mastopathy of left breast; Z80.3 Family history of malignant neoplasm of breast; Z88.2 Allergy status to sulfonamides; Z91.040 Latex allergy status; Z87.891 Personal history of nicotine dependence

== ENCOUNTER → 2024-05-27 | Outpatient (CLI) | payer MEDICARE ==
--- NOTE | 2024-05-27 13:56 | MM ---
Reason for Exam: Follow-up at short interval from prior study. Last screening mammogram was performed 12 month(s) ago. Patient History: Menarche at age 14. First Full-Term at age 25. Left ovary removed at age 41. Right ovary removed at age 41. Hysterectomy at age 41. Postmenopausal. Patient has history of breast feeding. Estrogen for 10 years from age 41 until age 51. Progesterone for 10 years from age 41 until age 51. Hormonal Contraceptives for 10 years from age 26 until age 36. 2018, Benign Excisional Biopsy on the right side. Paternal aunt had breast cancer, age 60. Sister had breast cancer, age 66. Risk Values: Candace 5 year model risk: 3.8%. NCI Lifetime model risk: 12.7%. Prior Study Comparison: 02/11/2022 Bilateral MG screening mammo w CAD, [facility]. 05/27/2022 Right MG 3D diag mammo w/cad RT, [facility]. 05/27/2022 Right US breast RT, [facility]. 11/25/2022 Right US breast limited RT, [facility]. 05/29/2023 Bilateral MG 3D diag mammo w/cad SUZY, [facility]. 05/29/2023 Right US breast limited RT, [facility]. 11/28/2023 Right US breast limited RT, [facility]. Tissue Density: There are scattered areas of fibroglandular density. Findings: Analyzed By CAD. The pattern is symmetrical. Chronic nodularity is present bilaterally. No individual nodules more suspicious than another. No interval growth is evident. A previous 8mm nodule subareolar right breast is not identified on the current exam. No new nodules identified. No suspicious groups of microcalcifications, spiculated or lobular masses, architectural distortion or other secondary signs of malignancy are mammographically apparent. Overall Assessment: Benign, BI-RAD 2 Management: Screening Mammogram of both breasts in 1 year. A negative mammogram report should not preclude additional follow up of suspicious palpable abnormalities. Patient should continue monthly self breast exam. A clinical breast exam by your physician is recommended on an annual basis and results should be correlated with mammographic findings. Note on Candace scores and lifetime risk: 1. A Candace score greater than 3% is considered moderate risk. If this is the case, consider specialist referral to assess eligibility for a risk reducing agent. 2. If overall lifetime risk for the development of breast cancer is 20% or higher, the patient may qualify for future screening with alternating mammogram and breast MRI. [facility], , 05/27/2024 1:52 PM. Electronically signed and approved by: Usama Simental D.O. Radiologis
== END | disposition home or self-care (01) ==
LOC: RADMAMWWP 13:10
PROVIDERS: ATTEND Surgery
DX: R92.8 Other abnormal and inconclusive findings on diagnostic imaging of breast (principal); Z80.3 Family history of malignant neoplasm of breast; Z78.0 Asymptomatic menopausal state
CPT/HCPCS: 77066; G0279; 77062

== ENCOUNTER → 2024-05-30 | Outpatient (CLI) | payer MEDICARE ==
[2024-05-30 10:20] VITALS: BP 147/79; PULSE 77; RESP 17; TEMP 97.6
--- NOTE | 2024-05-30 10:27 | P.PN ---
Subjective Progress Note Date: 05/30/24 Principal diagnosis: fibrocystic breast disease 05-30-24 Principal diagnosis: 06-02-23 fibrocystic breast disease Geovanna is a 67-year-old white female initially seen in consultation for Dr. Cantrell regarding right nipple burning. She was not complaining of any pain on the left side. She is not complaining of any nipple discharge. She did not complain of any lumps masses or nodules of concern in either breast. She had a bilateral mammogram performed in which was BIRADS 2. She had had a left breast nodule removed in the remote past. The patient subsequently had a repeat right breast mammogram and ultrasound in which was BIRADS 3. She was recommended to have repeat right breast evaluation in 6 months. This was performed on 5522. This revealed a stable circumscribed anechoic lesion in the right breast at 11:00. It was felt that this may represent a simple cyst. It also showed a stable heterogeneous ovoid mass in the right nipple area measuring 1.4 x 1.5 cm. This may represent a complicated cyst. The recommendation was for bilateral mammogram in 6 months with a repeat right breast ultrasound. Is not complaining of any new lumps masses or nodules of concern in either breast. She no longer has burning behind the right nipple complex. She did have a ultrasound of the right breast on which revealed posterior to the nipple is 0.6 x 0.9 cm area. This was present previously and contains some echo es. This is smaller than prior study. This is not a simple cyst and follow-up is recommended. At the 11 o'clock position 0.3 x 0.5 cm area with through transmission. This was present previously and is smaller. This was felt to be probably benign BIRADS 3 and ultrasound of the right breast in 6 months was recommended with bilateral mammogram in 1 year. She also had a bilateral mammogram performed on the same date and it has not been read yet. She has decreased her caffiene intake and the pain behind the right nipple has stopped. Candace five-year risk 3.8%, lifetime risk 13.2% Patient has decreased her caffeine intake and the initial burning which she felt in the right nipple area has subsided. She is not complaining of any lumps masses or nodules of concern in either breast. 12-01-23 right breast ultrasound 11-28-23 BIRAD 3 repeat bilateral mammogram in 6 months Complaining of any new lumps masses or nodules of concern in either breast Candace risk evaluation 5 year 3.8%; we have discussed chemoprophylaxis and the patient has declined at this time NCI lifetime risk 12.7 05-30-24 Geovanna is a 68 year old with a history of fibrocystic breast disease. She had a bilateral mammogram on 05-27-24 which was BIRAD 2. This was personally interpreted. Candace risk evaluation 5 year 3.8%; we have discussed chemoprophylaxis and the patient has declined at this time NCI lifetime risk 12.7 Caffeine: 1 cup/day;now drinks < 1 cup/day; the patient has stopped her caffeine July 2023 nicotine: none; 2004 stopped used to smoke 1 pack/week chocolate: weekly BCP: 10 years stopped in 1995 Family History: mother: lung cancer sister: breast cancer at 66 paternal aunt: breast cancer Hormonal history: Menarche: 14 , breast fed: yes, age at first : 25 menopause: Abdominal hysterectomy at 41 secondary to bleeding HRT: stopped at 51 Surgical History: total abdominal hysterectomy gallbladder appy cyst right wrist left breast biopsy lesion on tongue removed benign spring 2023 Medical History: HTN depression IBS restless leg hypothyroid atrial fib on eliquis cardiac ablation done Social history: Nicotine: Smoked 1 pack per week for approximately 3 years stopped in 2004 Alcohol: Occasional Drugs: none - Constitutional Constitutional: Reports fever, Reports sweats - EENT Eyes: denies blurred vision, denies pain Ears, nose, mouth and throat: Denies headache, Denies sore throat - Breasts Breasts: bilateral: as per HPI - Cardiovascular Cardiovascular: Denies chest pain, Denies shortness of breath; atrial fibrillation on Eliquis was has had cardiac ablation - Respiratory Respiratory: Denies cough - Gastrointestinal Gastrointestinal: Denies abdominal pain, Denies diarrhea, Denies nausea, Denies vomiting - Genitourinary (Female) Genitourinary: Denies dysuria, Denies hematuria - Menstruation Menstruation: Reports post hysterectomy - Musculoskeletal Comment: right shoulder - Integumentary Integumentary: Denies pruritus, Denies rash - Neurological Neurological: Reports numbness, Denies weakness - Psychiatric Psychiatric: Reports anxiety, Reports depression - Endocrine Endocrine: Denies fatigue, Denies weight change - Hematologic/Lymphatic Comment: none - Allergic/Immunologic Allergic/Immunologic: Reports as per HPI Past Medical History Past Medical History: Hypertension, Thyroid Disorder Additional Past Medical History / Comment(s): States "heart rate speeds up at times", IBS, hypothyroid. CYST RT BREAST. History of Any Multi-Drug Resistant Organisms: None Reported Past Surgical History: Appendectomy, Cholecystectomy, Hysterectomy Additional Past Surgical History / Comment(s): 10/13/16 colonoscopy-normal, R wrist cystectomy, APENDECTOMY 2017 Past Anesthesia/Blood Transfusion Reactions: Postoperative Nausea & Vomiting (PONV) Additional Past Anesthesia/Blood Transfusion Reaction / Comment(s): has hard time waking up with anesthesia. No hx blood transfusion Past Psychological History: Anxiety, Depression Additional Psychological History / Comment(s): Pt resides with her spouse. She is independent. Smoking Status: Former smoker Past Alcohol Use History: Occasional Additional Past Alcohol Use History / Comment(s): quit smoking approx 2006, smoked for 3 yrs approx <1ppd Past Drug Use History: None Reported - Past Family History Mother Family Medical History: Cancer Additional Family Medical History / Comment(s): lung CA. Mother was a smoker. Father Additional Family Medical History / Comment(s): alcoholism Sister(s) Family Medical History: Cancer Additional Family Medical History / Comment(s): Breast CA 2015 Medications and Allergies Home Medications Medication Instructions Recorded Confirmed Type Ergocalciferol [Vitamin D2 50,000 unit PO MO 10/10/16 05/06/22 History (DRISDOL)] Hyoscyamine Sulfate [Levsin] 0.125 mg PO QID PRN 10/10/16 05/06/22 History Venlafaxine HCl [Effexor XR] 150 mg PO HS 10/10/16 05/06/22 History ramipriL [Altace] 10 mg PO BID 10/10/16 05/06/22 History Levothyroxine Sodium [Synthroid] 50 mcg PO QAM 10/27/16 05/06/22 History Allergies Allergy/AdvReac Type Severity Reaction Status Date / Time latex Allergy Rash/Hives Verified 05/06/22 14:30 Sulfa (Sulfonamide AdvReac Nausea & Verified 05/06/22 14:30 Antibiotics) Vomiting Objective - Vital Signs Vital signs: Intake & Output 1105/30/24 05/30/24 18:59 06:59 18:59 Weight 94.347 kg - Constitutional General appearance: Present: cooperative - EENT Eyes: Present: EOMI ENT: Present: hearing grossly normal - Neck Neck: Present: normal ROM - Respiratory Respiratory: bilateral: CTA - Cardiovascular Rhythm: regular Heart sounds: normal: S1, S2 - Integumentary Integumentary: Present: normal turgor - Musculoskeletal Musculoskeletal: Present: gait normal - Psychiatric Psychiatric: Present: A&O x's 3, appropriate affect, intact judgment & insight - Additional findings Additional findings: Breast Exam: BRA: 40D inspection: Bilateral grade 2 ptosis Palpation: Right breast: Multi- positional exam fibrocystic changes no dominant masses or nodules of concern, particular attention to the area behind the nipple areolar complex does not reveal any specific lesion of concern Right axilla: No adenopathy of concern Left breast: Multi-positional exam fibrocystic changes no dominant masses or nodules of concern Left axilla: No adenopathy of concern Assessment and Plan Assessment: Impression: bilateral fibrocystic breast changes right breast ultrasound 11-28-23 BIRADS 3 bilateral mammogram 04-28-23 lead to an ultrasound, BIRAD 3, repeated on 11-28-23 bilateral mammogram on 05-27-24 BIRAD 2 Plan: bilateral mammogram May 2025 with appointment Patient to follow up sooner any questions or concerns Cc: Dr. Gonsalez
== END ==
LOC: WWCWWP 10:06
PROVIDERS: ATTEND Surgery
DX: R92.8 Other abnormal and inconclusive findings on diagnostic imaging of breast (principal); N60.11 Diffuse cystic mastopathy of right breast; N60.12 Diffuse cystic mastopathy of left breast; Z80.3 Family history of malignant neoplasm of breast; Z87.891 Personal history of nicotine dependence; Z88.2 Allergy status to sulfonamides; Z91.040 Latex allergy status